=== PATIENT | female | born 1955 | race Caucasian/White ===

== ENCOUNTER → 2017-06-18 12:49 | Outpatient (CLI) | payer OTHER, SELFPAY ==
--- NOTE | 2017-06-18 18:03 | CA.SCORE ---
Calcium Scoring Date of Study:: 06/18/17 Coronary Calcium Scoring: High-resolution computed tomography imaging of the chest was performed on 06/18/2017 with particular attention paid to the coronary arteries. Images from the examination were analyzed for the presence and extent of coronary artery calcification using the quantification software. She tolerated the procedure well. Results. The left main coronary artery did not have any coronary calcium, The left anterior descending artery had a calcium score of 0. The left circumflex artery had a calcium score of 0, The right coronary artery had mild calcification with a calcium score of 3. The above translates to a percentile ranking of less than 50%. Conclusion: Minimal plaque burden Significant coronary artery disease unlikely.
--- NOTE | 2017-06-18 18:06 | CCTA_ITS ---
Calcium Scoring Date of Study:: 06/18/17 Coronary Calcium Scoring: High-resolution computed tomography imaging of the chest was performed on 2017 with particular attention paid to the coronary arteries. Images from the examination were analyzed for the presence and extent of coronary artery calcification using the quantification software. She tolerated the procedure well. Results. The left main coronary artery did not have any coronary calcium, The left anterior descending artery had a calcium score of 0. The left circumflex artery had a calcium score of 0, The right coronary artery had mild calcification with a calcium score of 3. The above translates to a percentile ranking of less than 50%. Conclusion: Minimal plaque burden Significant coronary artery disease unlikely.
== END ==
PROVIDERS: Family Provider Internal Medicine; PCP Internal Medicine; Visit Provider Internal Medicine
DX: Z13.9 Encounter for screening, unspecified (principal)
CPT/HCPCS: 75571; A4216

== ENCOUNTER 2018-04-08 15:00 | Outpatient (RCR) | payer OTHER, SELFPAY ==
--- NOTE | 2018-03-31 18:40 | HP.PTEVAL_ITS ---
Patient's Visit Information NIXON FORBES is a 62 year old F referred to Physical Therapy by Pooja Gamez MD with a diagnosis of R hip pain bursitis. Date of Evaluation: 03/31/18 Physical Therapist: Anuj Servin DPT, OCS, CSCS - Visit Plan Frequency: 2-3x /Week Duration: 4 Weeks Plan: 1-3x/week for 2-4 weeks as needed for. Gave stretches today and activitiy modification, if doing much better next week, will progress to quad and HS/ITB stretch adn SLR via HEP. If not doing better, will nicole, stretch ITB and US adn schedule more frequently. - Subjective Findings: R hip and down side of leg laterally. Worst on steps ascending adn at 4 oclcok in the morning it wakes her up many nights. Sleeps on side(L or R). Its been hurting since beginning of February for no apparent reason. Pain is intermittent. Comfortable at rest typically. Doesn't avoid activities accept a set of steps now and then. 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 - Pain R hip/ITB Pain Intensity (Out of 10): 0 Pain Intensity Range: 0, 7 - Objective Walks well today but says she is normall a luittle antalgic on R. Trasnfers without a problem. ITB B tight mod and HS adn quad mod tight. HIP AROM B WNL and symmetrical, pain on R with ext rotation adn adduction. Knee adn ankle AROM WNL. Strength hip abd and ext rotation are 4- and painful ext B 4-, otherwise 4/5 and without pain. Reflexes 0/3 patella adn achilles B. Sensation WNL to gross light touch B LE. Max tender to palpation over R greater trochanter and moderately into ITB R, not on left. - Goals Goal 1:: I approp HEP to minimize future problems Goal Time Frame: 2-4 Weeks Goal 2:: Pain 1/10 at worst adn rare, 90% better Goal Time Frame: 2-4 Weeks Goal 3:: Sleep without waking at night due to pain. Goal Time Frame: 2-4 Weeks - Rehabilitation Potential Physical Therapy Diagnosis: R trochanteric bursitis, ITB pain. Rehabilitation Potential: Fair - Anticipated Interventions Patient/Client Instruction: Educate patient on: Condition, Plan of Care For the Purpose of:: To decrease pain, To increase ROM, To improve muscle performance and motor function, To increase tolerance to activity/condition/po sition Therapeutic Exercise to Include: Strength training, Flexibilty training, Passive ROM, Active ROM For the Purpose of:: To decrease pain, To increase ROM, To improve performance and independence with ADL's, To improve ability of physical actions for home/community/work/leisure Manual Therapy Techniques to Include: Mobilization, Passive ROM, Soft tissue mobilization For the Purpose of:: To improve nutrient delivery to tissue, To increase tolerance to activity/condition/position IF ES: Yes Cryotherapy (ice pack, ice massage): Yes Ultrasound (thermal/non thermal): Yes - nonthermal. For the Purpose of:: To decrease pain, To improve nutrient delivery to tissue, To increase tolerance to activity/condition/position Thank you for the opportunity to evaluate your patient. For Medicare and Medicare HMO plans, please review the plan of care and approve it. It will need to be FAXED BACK to us at [phone] for Medicare purposes. For Medicare only, by signing this I certify the plan of care. Please let me know if there are questions or concerns regarding this plan of care. Physician Signature: ____Date:
--- NOTE | 2018-05-12 11:17 | HP.PTDCNRP_ITS ---
HP - Discharge Summary (1) - Patient Information NIXON FORBES was seen in my office for initial evaluation on 03/31/18. The following Plan of Care was established for this patient: Initial Frequency: 2-3x /Week Initial Duration: 4 Weeks - Anticipated Interventions Patient/Client Instruction: Educate patient on: Condition, Plan of Care For the Purpose of:: To decrease pain, To increase ROM, To improve muscle perfo rmance and motor function, To increase tolerance to activity/condition/position Therapeutic Exercise to Include: Strength training, Flexibilty training, Passive ROM, Active ROM For the Purpose of:: To decrease pain, To increase ROM, To improve performance and independence with ADL's, To improve ability of physical actions for home/community/work/leisure Manual Therapy Techniques to Include: Mobilization, Passive ROM, Soft tissue mobilization For the Purpose of:: To improve nutrient delivery to tissue, To increase tolerance to activity/condition/position IF ES: Yes Cryotherapy (ice pack, ice massage): Yes Ultrasound (thermal/non thermal): Yes - nonthermal. For the Purpose of:: To decrease pain, To improve nutrient delivery to tissue, To increase tolerance to activity/condition/position This patient was last seen in our office 04/08/18. Pertinent comments regarding their Physical therapy will appear below: Pt seen 2 visits of POC and neglected to schedule or attend any further visits. I will discontinue due to nonattendance as it has been over a month. At this point I will be discontinuing this patient from physical therapy. I would be happy to see this patient again in the future if found appropriate by the physician. Thank you! Anuj Servin, DPT, OCS, CSCS
== END 2018-04-08 17:00 | disposition home or self-care (01) ==
LOC: PT 15:00
PROVIDERS: Family Provider Internal Medicine; PCP Internal Medicine; Referring Provider Internal Medicine; Visit Provider Internal Medicine
DX: M76.31 Iliotibial band syndrome, right leg (principal); M70.71 Other bursitis of hip, right hip
CPT/HCPCS: 97110; 97161

== ENCOUNTER → 2018-05-10 10:16 | Outpatient (CLI) | payer OTHER, SELFPAY ==
--- NOTE | 2018-05-10 10:19 | BI_ITS ---
MAMMOGRAPHY - BILATERAL SCREENING REASON FOR EXAM: Female, 62 years old. Routine annual screening examination. PERTINENT HISTORY: Sister with breast cancer. Mother with breast cancer. TECHNIQUE: Digital bilateral breast dejon (3D mammographic acquisition) in the CC and MLO projections. 2-D mediolateral oblique (MLO) and craniocaudad (CC) views of both breasts were obtained. CAD: Full Field Digital Mammography with Computer Added Detection was performed. COMPARISON: Comparison is made with prior examination dated February 26, 2017 and February 25, 2016. FINDINGS: Breast Composition: There are scattered areas of fibroglandular density. There are no dominant masses or suspicious calcifications. No other significant abnormalities are identified. There has been no significant change since the prior study. BI/SCREENING MAMM (CAD), BILAT IMPRESSION: Stable bilateral screening mammogram. Yearly follow-up mammogram recommended. (A) ASSESSMENT CATEGORY: BIRADS Category 1: Negative. A letter regarding these results will be sent to the patient by the facility within 30 days. Approximately 10% of breast cancers are not detected by mammography. A normal mammogram should not delay biopsy of a clinically suspicious abnormality. [id number] Electronically Signed: Ayaan Posadas, at 11:52 EST , Service support ,
--- NOTE | 2018-05-10 10:20 | BD_ITS ---
STUDY: DUAL ENERGY X-RAY ABSORPTIOMETRY / DXA REASON FOR EXAM: Female, 62 years old. The patient is postmenopausal. Loss of height. TECHNIQUE: Bone Mineral Density (BMD) measurements of lumbar spine and bilateral hips were obtained. COMPARISON: Comparison is made with prior study dated February 25, 2016. FINDINGS: Lumbar Spine (L1-L4): g/cm2 (1.103) / T-score (-0.6) / Z-score (1.0) Findings are suggestive of normal bone density with a low fracture risk. Left Femur Total: g/cm2 (1.126) / T-score (0.9) / Z-score (2.1) Left Femoral Neck: g/cm2 (1.017) / T-score (-0.2) / Z-score (1.3) Right Femur Total: g/cm2 (1.128) / T-score (1.0) / Z-score (2.1) Right Femoral Neck: g/cm2 (1.102) / T-score (0.5) / Z-score (1.9) The T-Scores on the most recent prior examination were: Lumbar Spine (L1-L4): There has been worsening of bone density since the previous examination. Left Femur Total: which represents an improvement of 1.2% . Right Femur Total: which represents a worsening of 7.2%. BD/Dexa Bone Density Study IMPRESSION: The patient is considered normal as outlined below according to World Maciel Organization (WHO) criteria with a low fracture risk. There has been worsening of bone density since the previous examination. Reference Information: The T-score is the number of standard deviations above or below the standard which is normal for young adults at their peak bone mineral density. The World Health Organization (WHO) interprets the T-scores as follows: Above -1 Normal bone density Between -1 and -2.5 Osteopenia Equal to / or below -2.5 Osteoporosis As a practical clinical guideline, osteopenia may be graded as follows: Mild -1 through -1.5 Moderate -1.6 through -2.0 Severe -2.1 through -2.4 The Z-score is the number of standard deviations above or below age-matched controls. A Z-score of less than -1.5 would be considered abnormal. References: 1. NIH Osteoporosis and Related Bone Diseases http://www.osteo.org 2. International Society for Clinical Densitometry http://www.iscd.org 3. National Osteoporosis Foundation http://www.nof.org Electronically Signed: Ayaan Posadas, at 13:28 EST , Service support ,
== END ==
PROVIDERS: Family Provider Internal Medicine; PCP Internal Medicine; Referring Provider Internal Medicine; Visit Provider Internal Medicine
DX: Z78.0 Asymptomatic menopausal state (principal); Z12.31 Encounter for screening mammogram for malignant neoplasm of breast; Z80.3 Family history of malignant neoplasm of breast
CPT/HCPCS: 77063; 77067; 77080

== ENCOUNTER → 2018-09-15 | Outpatient (CLI) | payer OTHER, SELFPAY ==
--- NOTE | 2018-09-15 10:24 | RAD_ITS ---
STUDY: X-RAY CHEST REASON FOR EXAM: Female, 62 years old. Cough, several days TECHNIQUE: PA and lateral chest COMPARISON: 06/02/2016 FINDINGS: Small calcified pulmonary nodule at the left lung base, stable compared to prior imaging. Minimal left lung base atelectasis. Lungs otherwise clear. No defined effusion, infiltrate or pneumothorax. Normal cardiomediastinal silhouette, nereida and pleural margins. No acute osseous or upper abdominal process. Cholecystectomy. RAD/Chest PA and Lateral IMPRESSION: Minimal left lung base atelectasis. Electronically Signed: Ayaz Chaney MD at 8:18 EDT Tel , Service support ,
== END | disposition home or self-care (01) ==
LOC: HPRAD 10:22
PROVIDERS: Family Provider Internal Medicine; PCP Internal Medicine; Referring Provider Internal Medicine; Visit Provider Internal Medicine
DX: R05 Cough (principal)
CPT/HCPCS: 71046

== ENCOUNTER → 2018-10-14 | Outpatient (CLI) | payer OTHER, SELFPAY ==
--- NOTE | 2018-10-14 11:28 | VDLE_ITS ---
Reason For Study: Knee Pain RIGHT LEFT GSV is normal. CFV is compressible, spontaneous, phasic, CFV is compressible, spontaneous, phasic, competent, and demonstrates normal competent and demonstrates normal augmentation. augmentation. FV is compressible, spontaneous, phasic, competent and demonstrates normal augmentation. POP V is compressible, spontaneous, phasic, competent and demonstrates normal augmentation. T/P Trunk is compressible. PTV is compressible. RT PerV is compressible. Procedure Exam performed in department. A preliminary report was called and/or faxed to Dr. Gamez. Interpretation Summary Deep veins of the right lower extremity are patent and compressible segmentally. There is no evidence of right lower extremity deep vein thrombosis. Valvular competence appears intact within the proximal deep venous system on the right . The right greater saphenous vein appears patent and compressible segmentally. Ordering Physician: Pooja Gamez Referring Physician: Pooja Gamez Performed By: Frances Colindres, TIGIST, RVT
--- NOTE | 2018-10-14 11:57 | RAD_ITS ---
STUDY: X-RAY - RIGHT KNEE REASON FOR EXAM: Female, 62 years old. Pain along the posterior-lateral aspect of the knee joint. TECHNIQUE: 4 view(s) of the knee. COMPARISON: None. FINDINGS: Normal visualized distal femur. Normal visualized proximal tibia and fibula. Normal proximal tibiofibular articulation. There is mild degenerative arthrosis of the medial femorotibial compartment. Normal lateral femorotibial compartment. Small spur is seen along the anterior superior aspect of the patella. Small joint effusion. RAD/Knee 4 or More Views IMPRESSION: Mild degree of joint space narrowing involving the medial compartment of knee joint. Small joint effusion. Electronically Signed: Ayaan Posadas, at 12:52 EDT , Service support ,
== END | disposition home or self-care (01) ==
PROVIDERS: Family Provider Internal Medicine; PCP Internal Medicine; Referring Provider Internal Medicine; Visit Provider Internal Medicine
DX: M25.561 Pain in right knee (principal)
CPT/HCPCS: 73564; 93971

== ENCOUNTER → 2019-01-02 10:48 | Outpatient (CLI) | payer MEDICARE, OTHER, SELFPAY ==
--- NOTE | 2019-01-02 11:05 | RAD_ITS ---
STUDY: X-RAY - LEFT FOOT CLINICAL: Pain at the base of the fifth metatarsal. TECHNIQUE: 3 view(s) of the foot. COMPARISON: None. FINDINGS: Normal talus, calcaneus, and tarsal bones. Normal visualized subtalar, talonavicular, calcaneocuboid, tarsal and tarsometatarsal articulations. Normal metatarsi. Normal metatarsophalangeal joint of the great toe. Normal tibial and fibular sesamoid bones. Normal interphalangeal joint of the great toe. Normal phalanges of the great toe. Normal second through fifth metatarsophalangeal joints. Normal interphalangeal joints and phalanges of the lesser toes. The soft tissue structures are unremarkable. RAD/Foot min 3 Views IMPRESSION: Normal x-ray examination of the left foot. Electronically Signed: Kyle Phillips MD at 11:44 EDT Tel , Service support ,
== END ==
PROVIDERS: Family Provider Internal Medicine; PCP Internal Medicine; Referring Provider Internal Medicine; Visit Provider Internal Medicine
DX: M79.672 Pain in left foot (principal)
CPT/HCPCS: 73630

== ENCOUNTER → 2019-05-18 11:33 | Outpatient (CLI) | payer MEDICARE, OTHER, SELFPAY ==
--- NOTE | 2019-05-18 11:26 | BI_ITS ---
MAMMOGRAPHY - BILATERAL SCREENING REASON FOR EXAM: Female, 63 years old. Routine annual screening examination. PERTINENT HISTORY: Sister with breast cancer. Mother with breast cancer. TECHNIQUE: Digital bilateral breast evette (3D mammographic acquisition) in the CC and MLO projections. 2-D mediolateral oblique (MLO) and craniocaudad (CC) views of both breasts were obtained. CAD: Full Field Digital Mammography with Computer Added Detection was performed. COMPARISON: Comparison is made with prior examination May 10, 2018 and February 26, 2017. FINDINGS: Breast Composition: There are scattered areas of fibroglandular density. There are no dominant masses or suspicious calcifications. No other significant abnormalities are identified. There has been no significant change since the prior study. BI/SCREEN MAMM (CAD) W/EVETTE BILAT IMPRESSION: Stable bilateral screening mammogram. Yearly follow-up mammogram recommended. (A) ASSESSMENT CATEGORY: BIRADS Category 1: Negative. A letter regarding these results will be sent to the patient by the facility within 30 days. Approximately 10% of breast cancers are not detected by mammography. A normal mammogram should not delay biopsy of a clinically suspicious abnormality. [id number] Electronically Signed: Ayaan Posadas, at 13:43 EDT , Service support ,
== END ==
PROVIDERS: PCP Internal Medicine; Referring Provider Internal Medicine; Visit Provider Internal Medicine
DX: Z12.31 Encounter for screening mammogram for malignant neoplasm of breast (principal)
CPT/HCPCS: 77063; 77067

== ENCOUNTER → 2020-07-10 09:36 | Outpatient (CLI) | payer MEDICARE, OTHER, SELFPAY ==
--- NOTE | 2020-07-10 09:38 | BI_ITS ---
MAMMOGRAPHY - BILATERAL SCREENING REASON FOR EXAM: Female, 64 years old. Routine annual screening examination. PERTINENT HISTORY: Sister with breast cancer. Mother with breast cancer. TECHNIQUE: Digital bilateral breast evette (3D mammographic acquisition) in the CC and MLO projections. 2-D mediolateral oblique (MLO) and craniocaudad (CC) views of both breasts were obtained. CAD: Full Field Digital Mammography with Computer Added Detection was performed. COMPARISON: Comparison is made with prior study dated 05/18/2019 and 05/10/2018. FINDINGS: Breast Composition: There are scattered areas of fibroglandular density. There are no dominant masses or suspicious calcifications. No other significant abnormalities are identified. There has been no significant change since the prior study. BI/SCRN MAMM (CAD)W/EVETTE BILAT IMPRESSION: Stable bilateral screening mammogram. Yearly follow-up mammogram recommended. (A) ASSESSMENT CATEGORY: BIRADS Category 1: Negative. A letter regarding these results will be sent to the patient by the facility within 30 days. Approximately 10% of breast cancers are not detected by mammography. A normal mammogram should not delay biopsy of a clinically suspicious abnormality. [id number] Electronically Signed: Ayaan Posadas MD at 10:48 EDT , Service support ,
--- NOTE | 2020-07-10 09:40 | BD_ITS ---
STUDY: DUAL ENERGY X-RAY ABSORPTIOMETRY / DXA REASON FOR EXAM: Female, 64 years old. [id number]. The patient is postmenopausal. Loss of height. TECHNIQUE: Bone Mineral Density (BMD) measurements of lumbar spine and bilateral hips were obtained. COMPARISON: Comparison is made with prior study dated 05/10/2018. FINDINGS: Lumbar Spine (L1-L4): g/cm2 (1.123) / T-score (-0.4) / Z-score (1.2) Findings are suggestive of normal bone density with a low fracture risk. Left Femur Total: g/cm2 (1.097) / T-score (0.7) / Z-score (2.0) Left Femoral Neck: g/cm2 (1.023) / T-score (-0.1) / Z-score (1.4) Right Femur Total: g/cm2 (1.194) / T-score (1.5) / Z-score (2.7) Right Femoral Neck: g/cm2 (1.222) / T-score (1.3) / Z-score (2.8) The T-Scores on the most recent prior examination were: Lumbar Spine (L1-L4): There has been improvement of bone density since the previous examination. Left Femur Total: which represents a worsening of 2.6%. Right Femur Total: which represents an improvement of 5.9%. BD/Dexa Bone Density Study IMPRESSION: The patient is considered normal as outlined below according to World Maciel Organization (WHO) criteria with a low fracture risk. There has been improvement of bone density since the previous examination. Reference Information: The T-score is the number of standard deviations above or below the standard which is normal for young adults at their peak bone mineral density. The World Health Organization (WHO) interprets the T-scores as follows: Above -1 Normal bone density Between -1 and -2.5 Osteopenia Equal to / or below -2.5 Osteoporosis As a practical clinical guideline, osteopenia may be graded as follows: Mild -1 through -1.5 Moderate -1.6 through -2.0 Severe -2.1 through -2.4 The Z-score is the number of standard deviations above or below age-matched controls. A Z-score of less than -1.5 would be considered abnormal. References: 1. NIH Osteoporosis and Related Bone Diseases www osteo.org 2. International Society for Clinical Densitometry www iscd.org 3. National Osteoporosis Foundation www nof.org Electronically Signed: Ayaan Posadas MD at 12:58 EDT , Service support ,
== END ==
PROVIDERS: PCP Internal Medicine; Referring Provider Internal Medicine; Visit Provider Internal Medicine
DX: Z12.31 Encounter for screening mammogram for malignant neoplasm of breast (principal); Z78.0 Asymptomatic menopausal state
CPT/HCPCS: 77063; 77067; 77080

== ENCOUNTER → 2020-09-03 08:04 | Outpatient (CLI) | payer MEDICARE, OTHER, SELFPAY ==
--- NOTE | 2020-09-03 08:28 | MRI_ITS ---
STUDY: MRI LEFT KNEE WITH AND WITHOUT CONTRAST REASON FOR EXAM: Left knee pain for more than 3 months, ACL reconstruction 2000, evaluate radiolucency in the proximal tibia on radiographs. TECHNIQUE: Standardized fat and water weighted pulse sequences were obtained in all 3 orthogonal planes before and after intravenous administration of 18 mL of Dotarem. COMPARISON: Radiographs 08/26/2020. FINDINGS: There is attrition of the posterior horn of the medial meniscus suggestive of partial medial meniscectomy with a very small complex signal alteration of the posterior horn of the medial meniscus (proton-density sagittal images 8, 9), either scarring or very small recurrent medial meniscal tear. There is mild peripheral subluxation of the medial meniscus. There is arthrosis of the medial femorotibial compartment with small marginal osteophytes, a subchondral cyst in the medial tibial plateau and chondral thinning (T2 sagittal image 7). There is subchondral bone edema of the medial femoral condyle (T2 coronal images 17-21) with contrast enhancement (postcontrast T1 sagittal images 6, 7), a stress phenomenon. Normal medial collateral ligamentous complex (MCL). Normal distal semimembranosus, gracilis and semitendinosus tendons. Normal lateral meniscus. Normal hyaline cartilage of the lateral femorotibial compartment. Normal lateral femoral condyle and tibial plateau. Normal proximal tibiofibular articulation. Normal lateral collateral (fibular) ligament. Normal popliteus tendon. Normal biceps femoris tendon. There is attenuation of the anterior cruciate ligament (proton-density sagittal image 21; series 7 image 12) suggestive of partial tear. Normal posterior cruciate ligament (PCL). Normal congruent patellofemoral articulation. There is arthrosis of the patellofemoral compartment with very small marginal osteophytes of the patella, mild subchondral cystic change of the patella and partial-thickness chondral loss (T2 sagittal image 12). Normal medial and lateral patellar retinaculum. Normal quadriceps tendon. Normal patellar tendon. There is postoperative scarring in Hoffa''s fat pad. There is a very small joint effusion. There is edema in the anterior and posterior subcutis adipose space. There are postoperative changes of the distal femur and proximal tibia from anterior cruciate ligament reconstruction with the radiolucency on the radiographs representing the tibial bone tunnel. MRI/Lower Ext Joint Only W/WO Cont IMPRESSION: Attenuation of the anterior cruciate ligament graft suggestive of partial tear. Arthrosis of the medial femorotibial and patellofemoral compartments. Partial medial meniscectomy with very small signal alteration of the posterior horn of the medial meniscus, either scarring or very small recurrent medial meniscal tear. Subchondral bone edema of the medial femoral condyle, a stress phenomenon. Very small joint effusion. Radiolucency on radiographs representing the tibial bone tunnel and not a Gary''s abscess. Electronically Signed: Kyle Phillips MD at 10:28 EDT Tel , Service support ,
[2020-09-03 08:35] LABS: CREATININE FINGERSTICK < 0.6 mg/dL (0.55-1.02); EGFR FINGERSTICK > 60.0000 mL/min (>60)
== END ==
PROVIDERS: PCP Internal Medicine; Referring Provider Internal Medicine; Visit Provider Internal Medicine
DX: R93.7 Abnormal findings on diagnostic imaging of other parts of musculoskeletal system (principal)
CPT/HCPCS: 73723; A9575

== ENCOUNTER 2020-09-19 11:00 | Outpatient (RCR) | payer MEDICARE, OTHER, SELFPAY ==
--- NOTE | 2020-08-28 10:34 | HP.PTEVAL_ITS ---
Patient's Visit Information NIXON FORBES is a 64 year old F referred to Physical Therapy by Dr. Pooja Gamez MD with a diagnosis of Left Knee Pain. Date of Evaluation: 08/28/20 Physical Therapist: Emily Dominguez DPT - Visit Plan Frequency: 2x /Week Duration: 4 Weeks Plan: Hold until MRI results- focus on LE and core strength/stabilization with functional mobility. HEP Reviewed: SLR, bridge, hip abduction, clams - Subjective Patient reports 2000 ACL surgery- DSA 10 years later and has never been quite right. In the past few months its flared up and is hard to do steps and garden. Days she takes Ibuprofen just to get her stuff done. Left Knee- Insidious onset. Pain is located along the medial patella and superior patella. Pain does radiates to the posterior knee if she sits to long. Both of her shins hurt in the morning. The right knee is painful but not as bad as the left. Non- contact ACL injury. She describes the pain as dull and achy all the time but this is more sharp. No N/T in the LE. Worst: 8/10 Agg: gardening, Lifting heavy things, sweeping, stairs (up and down). Eases: rest Best: 0/10. Sleep: sometimes disturbed- side sleeper- pillow between the knees. 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 Just had x-rays taken on Wednesday and they are doing an MRI on Wednesday to check for a Gary's abscess. PMHx: none Meds: Crestor - Objective Posture: FH, RS- can correct but does not maintain. Gait: slightly deviated- decreased stance on the left LE. Stairs: asc/desc 8 recip with 2 HR- uses UE for propulsion for ascend and has poor control with descent. HR/TR: able without Pain. SLS: 30 sec without LOB does have mild hip drop. Squat: weight shifts to the right. ROM: 0-125 degrees with pain at end ranges. Sensation/Reflex: WFL. Strength: Core: fair, Hip: 4/5 throughout, Knee: 4+/5, Ankle: 5/5. Flex: HS: mild, Gastroc: moderate - Goals Goal 1:: Patient will be I with HEP and progression Goal Time Frame: 4-6 Weeks Goal 2:: Patient will asc/desc 8 stairs recip with no HR and good control Goal Time Frame: 4-6 Weeks Goal 3:: Patient will report no pain for 1 week Goal Time Frame: 4-6 Weeks - Rehabilitation Potential Physical Therapy Diagnosis: Patient presents with hypomobility- she has decreased painfree ROM, core and LE strength/stabilization, flex and muscular endurance leading to poor posture and increased pain with ADL's. Rehabilitation Potential: Good - Anticipated Interventions Patient/Client Instruction: Educate patient on: Benefits of Fitness Program Therapeutic Exercise to Include: Strength training, Endurance training, Balance training, Coordination, Agility training, Postural training, Flexibilty training, Gait and locomotor training, Neuromotor development, Passive ROM, Active ROM, Dynamic Lumbar Stabilization, Scapular Strength/Stabilization For the Purpose of:: To improve muscle performance and motor function TENS: Yes Cryotherapy (ice pack, ice massage): Yes Thermo therapy (hot pack): Yes Ultrasound (thermal/non thermal): Yes Thank you for the opportunity to evaluate your patient. For Medicare and Medicare HMO plans, please review the plan of care and approve it. It will need to be FAXED BACK to us at [phone] for Medicare purposes. For Medicare only, by signing this I certify the plan of care. Please let me know if there are questions or concerns regarding this plan of care. Physician Signature: Date:
--- NOTE | 2021-01-06 08:38 | HP.PT.NRP ---
NIXON FORBES was seen in my office for initial evaluation on 08/28/20. The following Plan of Care was established for this patient: Initial Frequency: 2x /Week Initial Duration: 4 Weeks Patient/Client Instruction: Educate patient on: Benefits of Fitness Program Therapeutic Exercise to Include: Strength training, Endurance training, Balance training, Coordination, Agility training, Postural training, Flexibilty training, Gait and locomotor training, Neuromotor development, Passive ROM, Active ROM, Dynamic Lumbar Stabilization, Scapular Strength/Stabilization For the Purpose of:: To improve muscle performance and motor function TENS: Yes Cryotherapy (ice pack, ice massage): Yes Thermo therapy (hot pack): Yes Ultrasound (thermal/non thermal): Yes This patient was last seen in our office . Pertinent comments regarding their Physical therapy will appear below: Patient has not attended PT in over 4 weeks and is appropriate for discharge- return to MD for further evaluation as needed. At this point I will be discontinuing this patient from physical therapy. I would be happy to see this patient again in the future if found appropriate by the physician. Thank you! Emily Dominguez DPT Balance/Gait/Functional tests - Balance/Special Test Scores Lower Extremity Functional Score: 47
== END 2020-09-19 19:00 | disposition home or self-care (01) ==
LOC: PT 11:00
PROVIDERS: PCP Internal Medicine; Referring Provider Internal Medicine; Visit Provider Internal Medicine
DX: M22.8X2 Other disorders of patella, left knee (principal)
CPT/HCPCS: 97110; 97162; 97530

== ENCOUNTER 2021-06-20 06:25 | Outpatient (CLI) | payer MEDICARE, OTHER, SELFPAY ==
--- NOTE | 2021-06-20 12:56 | STRESSREP ---
Stress Test Report Date: 06/20/2021 Procedure: Exercise tolerance test/imaging study Indications: Chest pain Consent: Per the patient Procedure: The patient exercised on a Gregorio protocol for 5 minutes and 4 seconds achieving a peak heart rate of 141 bpm (92% predicted maximal heart rate) with a peak blood pressure 170/72 mmHg and a peak MET capacity of 7 METs. The baseline ECG demonstrated normal sinus rhythm, poor R wave progression in the anterior leads. The peak exercise ECG demonstrated sinus tachycardia with no significant ischemic changes. EKG during recovery revealed no significant ischemic changes [There were no cardiac dysrhythmias pretest, during exercise, or recovery]. The functional capacity was considered normal for age. There was [no complaint of chest discomfort during exercise or recovery]. The examination was discontinued secondary to achieving target heart rate. Impression: 1. Technically adequate (percent predicted maximal heart rate greater than 85%) exercise tolerance test 2. Stress test is negative for exercise-induced EKG changes of ischemia 3. The test test is negative for exercise-induced chest pain 4. Functional capacity is normal for age 5. Nuclear images pending Myocardial perfusion imaging study: Technique: The patient was injected with 14.3 mCi of technetium 99m Cardiolite and subsequently rest SPECT Cardiolite nuclear imaging was obtained in the horizontal long, vertical long, and short axis views. The patient exercised on a Gregorio protocol. Please see above for details. The patient was injected with 44.4 mCi of technetium 99m Cardiolite and subsequently stress SPECT Cardiolite nuclear imaging was obtained in the horizontal long, vertical long, and short axis views. A gated Cardiolite study at peak stress was obtained. Interpretation: Rest and stress SPECT Cardiolite nuclear imaging status post realignment, normalization, and attenuation correction, demonstrates no evidence of significant ischemia or infarction. The gated Cardiolite study demonstrates no significant regional wall motion abnormalities. The reported LVEF is greater than 70%. Impression: 1. There is no evidence of significant ischemia or infarction. 2. The gated Cardiolite study reports an LVEF of greater than 70%. This note was generated with [employer]ation software. It may contain incorrect words, spelling, and punctuation that were not noted in checking the note before signing.
== END 2021-06-20 23:59 | disposition home or self-care (01) ==
LOC: CVS 06:28
PROVIDERS: PCP Internal Medicine; Referring Provider Internal Medicine; Visit Provider Internal Medicine
DX: R07.89 Other chest pain (principal)
CPT/HCPCS: 78452; 93017; A9500; A4216

== ENCOUNTER → 2021-07-14 | Outpatient (CLI) | payer MEDICARE, OTHER, SELFPAY ==
--- NOTE | 2021-07-14 08:32 | BI_ITS ---
MAMMOGRAPHY - BILATERAL SCREENING REASON FOR EXAM: Female, 65 years old. Routine annual screening examination. PERTINENT HISTORY: Sister with breast cancer. Mother with breast cancer. TECHNIQUE: Digital bilateral breast evette (3D mammographic acquisition) in the CC and MLO projections. 2-D mediolateral oblique (MLO) and craniocaudad (CC) views of both breasts were obtained. CAD: Full Field Digital Mammography with Computer Added Detection was performed. COMPARISON: Comparison is made with prior study dated 07/10/2020 and 05/18/2019. FINDINGS: Breast Composition: There are scattered areas of fibroglandular density. There are no dominant masses or suspicious calcifications. No other significant abnormalities are identified. There has been no significant change since the prior study. BI/SCRN MAMM (CAD)W/EVETTE BILAT IMPRESSION: Stable bilateral screening mammogram. Yearly follow-up mammogram recommended. (A) ASSESSMENT CATEGORY: BIRADS Category 1: Negative. A letter regarding these results will be sent to the patient by the facility within 30 days. Approximately 10% of breast cancers are not detected by mammography. A normal mammogram should not delay biopsy of a clinically suspicious abnormality. [id number] Electronically Signed: Ayaan Posadas MD at 9:17 EDT ,
== END | disposition home or self-care (01) ==
LOC: OPBI 08:30
PROVIDERS: PCP Internal Medicine; Visit Provider Internal Medicine
DX: Z12.31 Encounter for screening mammogram for malignant neoplasm of breast (principal)
CPT/HCPCS: 77063; 77067

== ENCOUNTER 2021-10-27 11:00 | Outpatient (RCR) | payer MEDICARE, OTHER, SELFPAY ==
--- NOTE | 2021-08-11 15:00 | HP.PTEVAL ---
Patient's Visit Information NIXON FORBES is a 65 year old F referred to Physical Therapy by Dr. Pooja Obregon MD with a diagnosis of LEFT HIP PAIN. Date of Evaluation: 08/11/21 Physical Therapist: Sivan Strong PT, Cert MDT - Visit Plan Frequency: 2-3x /Week Duration: 4-6 Weeks Plan: AQUATIC THERAPY FOR PAIN RELIEF, POSTURE CORRECTION/STRENGTHENING, INSTRUCTION IN APPROPRIATE BODY MECHANICS AND ACTIVITY MODIFICATIONS. DLS STARTING WITH A NEUTRAL SPINE PROGRESSING ROM TOLERATED. GARETT LE ROM, STRETCHING AND STRENGTHENING. HEP INSTRUCTION. 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 NO HEAVY LIFTING. Disability: NO. Present symptoms: LEFT HIP PAIN. LEFT BUTTOCK PAIN. PAIN GOES DOWN THE FRONT OF HER THIGH, THE OUTSIDE OF HER THIGH AND DOWN INTO MILLER. PATIENT DENIES NUMBNESS AND TINGLING. Present since: ABOUT 3 WKS AGO. Pain Scale: WORST 8/10, LEAST 1/10. Currently: 5/10. Commenced as a result of: NO APPARENT REASON. Symptoms at onset: LEFT BUTTOCK. Worse: WORKING IN [employer] BEDS WEDNESDAY REALLY FLARED IT UP, SITTING AND TWISTING, BENDING OVER, STANDING TOO LONG, LYING ON LEFT SIDE, LYING ON R SIDE TOO, STEPS, BENDING DOWN TO PUT SHOE ON. ABOUT 1.5 WKS AGO PUT FOOT UP TO TIE SHOE AND HEARD AND FELT CRACK IN HIP. L HIP CLICKS SOMETIMES WHEN SWINGS L LEG. GETTING IN AND OUT OF CAR. Better: SITTING. Disturbed sleep: YES. Previous history/Previous treatment: PATIENT DENIES HISTORY OF HIP PAIN PRIOR TO THIS. Treatment this episode: EX'S FROM DR. OBREGON AND HAD BEEN DOING SEVERAL OF THEM BEFORE GETTING HURT TOO. IT GOT TO THE POINT THAT IT HURT TOO MUCH TO DO THEM. IT IS EASIER TO DO THEM IN THE WATER. WENT TO [facility] 3 TIMES WITH TEMPORARY BENEFIT. ICE AND IBUPROFEN TAKE THE EDGE OFF. TRAMADOL HAS BEEN PRESCRIBED BUT HASN'T TAKEN IT YET. VOLTERAN CREAM HELPS. Coughing/sneezing/straining: NEGATIVE. Gait: HAS TO USE CRUTCHES SOME. HAS TO LEAD UP STEPS WITH RIGHT LEG. HAS TO TAKE SMALL STEPS WALKING AND LIMPS ON LLE. Bowel or Bladder Dysfunction: NEGATIVE. Accidents: NO. Unexplained weight loss: NO. Imaging: L HIP X-RAY - NORMAL PER PATIENT REPORT. PMH/Recent major surgery: UNREMARKABLE. L KNEE ACL REPAIR 2000 AND 2009 L KNEE ARTHROSCOPIC SURGERY TO CLEAN IT UP. - Objective Sitting/Standing Posture: POOR. NO RELEVANT LATERAL SHIFT. Active Correction of posture: WORSE. PROVOKES LEFT LBP. Other Observations: INDEP GAIT INTO PT WITHOUT ANY ASSISTIVE DEVICES LIMPING ON LLE, WITH DECREASED CADANCE, DECREASED GARETT STRIDE LENGTH AND INCREASED TRUNK FLEXION. NO LOB. Sensory deficit: GARETT LE LIGHT TOUCH SENSATION GROSSLY INTACT AND SYMMETRICAL. ROM deficit: GARETT HS AND GASTROC SOLEUS TIGHTNESS. APPROX 25% DECREASED L HIP ROM ALL PLANES COMPARED TO RIGHT AND C/O PAIN AT THE END OF THE AVAILABLE ROM. Motor deficit: RIGHT LE 5/5. LEFT LE: HIP 3+/5, KNEE EXT 4/5, KNEE FLEX 5/5, ANKLE 5/5. Dural Signs: NEGATIVE GARETT LE DURAL TESTS. Lumbar mvmt loss: flex - MOD. ext - QI. R SG - MOD. L SG - MOD. PATIENT C/O INCREASED PAIN WITH LUMBAR ROM TESTING INTO EXTENSION AND FLEXION. Core strength: POOR. Palpation: LEFT POSTERIOR AND LATERAL HIP PAIN. LEFT IT BAND TENDERNESS. OTHER: POSITIVE L ERWIN TEST. TREATMENT: NEUROMUSCULAR REEDUCATION - RETRAINING OF MVMT AND POSTURE FOR SITTING, LYING AND STANDING ACTIVITIES. - Balance/Special Test Scores Lower Extremity Functional Score: 28 TUG Test Time Seconds: 13.77 30 Second Chair Rise Test Seconds: 12 - Goals Goal 1:: DECREASE C/O LEFT LE PAIN Goal Time Frame: 4-6 Weeks Goal 2:: IMPROVE BENDING, LIFTING, STANDING, WALKING, ADL, WORK AND SLEEP FUNCTION Goal Time Frame: 4-6 Weeks Goal 3:: INSTRUCT IN PROPHYLAXIS Goal Time Frame: 4-6 Weeks - Anticipated Interventions Patient/Client Instruction: Educate patient on: Condition, Plan of Care, Risk Factors For the Purpose of:: To improve self management Therapeutic Exercise to Include: Strength training, Body mechanics, Postural training, Flexibilty training, Neuromotor development, In an aquatic setting, Dynamic Lumbar Stabilization For the Purpose of:: To decrease pain, To increase ROM, To improve muscle performance and motor function, To increase tolerance to activity/condition/position, To improve ability of physical actions for home/community/work/leisure Thank you for the opportunity to evaluate your patient. For Medicare and Medicare HMO plans, please review the plan of care and approve it. It will need to be FAXED BACK to us at [phone] for Medicare purposes. For Medicare only, by signing this I certify the plan of care. Please let me know if there are questions or concerns regarding this plan of care. Physician Signature: Date:
--- NOTE | 2021-08-29 15:25 | HP.PTREVAL ---
Dr. Pooja Gamez MD, It has been my pleasure to treat NIXON FORBES over the last 10 visits for LEFT HIP PAIN. Please see the progress note below for an update on the physical therapy plan of care! Subjective: PATIENT REPORTS THE PAIN IN HER HIP IS ALMOST GONE. FEARFUL OF IT COMING BACK. MAIN TIME SHE FEELS SOME PAIN IS LAYING IN BED. NO PAIN AT WORK BUT NOT GETTING DOWN ON FLOOR YET. Objective/Function: PATIENT WAS SEEN TODAY FOR RE-ASSESSMENT OF PROGRESS TOWARD THE SET PT GOALS AND THE NEED FOR FURTHER PHYSICAL THERAPY VS READINESS FOR DISCHARGE. PATIENT IS MAKING GOOD PROGRESS TOWARD ALL PT GOALS AND IS A GOOD CANDIDATE TO CONTINUE PT BASED ON PROGRESS MADE AND ROOM FOR FURTHER IMPROVEMENT. PATIENT IS AGREEABLE. UPON EXAM TODAY: ROM deficit: GARETT HS AND GASTROC SOLEUS TIGHTNESS. APPROX 15% DECREASED L HIP ROM ALL PLANES COMPARED TO RIGHT AND STILL WITH C/O PAIN AT THE END OF THE AVAILABLE ROM. Motor deficit: RIGHT LE 5/5. LEFT LE: HIP 4-/5, KNEE EXT 4/5, KNEE FLEX 5/5, ANKLE 5/5. Dural Signs: NEGATIVE GARETT LE DURAL TESTS. Lumbar mvmt loss: flex - MIN. ext - QI. R SG - MOD. L SG - MOD. NO C/O INCREASED PAIN WITH LUMBAR ROM TESTING. Core strength: POOR. OTHER: POSITIVE L ERWIN TEST. Plan Plan: CONTINUE AQUATIC THERAPY PER ORIG POC NEEDED AFTER VACATION 2-3 TIMES A WEEK X 3-4 WKS. PATIENT AGREEABLE. Balance/Gait/Functional tests - Balance/Special Test Scores Lower Extremity Functional Score: 46 TUG Test Time Seconds: 13.77 Tug Test: <20 sec.=mostly independent 30 Second Chair Rise Test Seconds: 12 Goals Goal 1:: DECREASE C/O LEFT LE PAIN Goal Time Frame: 4-6 Weeks Goal Progress: Progressing Goal 2:: IMPROVE BENDING, LIFTING, STANDING, WALKING, ADL, WORK AND SLEEP FUNCTION Goal Time Frame: 4-6 Weeks Goal Progress: Progressing Goal 3:: INSTRUCT IN PROPHYLAXIS Goal Time Frame: 4-6 Weeks Goal Progress: Progressing Anticipated Interventions Patient/Client Instruction: Educate patient on: Condition, Plan of Care, Risk Factors For the Purpose of:: To improve self management Therapeutic Exercise to Include: Strength training, Body mechanics, Postural training, Flexibilty training, Neuromotor development, In an aquatic setting, Dynamic Lumbar Stabilization For the Purpose of:: To decrease pain, To increase ROM, To improve muscle performance and motor function, To increase tolerance to activity/condition/position, To improve ability of physical actions for home/community/work/leisure Please do not hesitate to contact me at [phone] by phone or if you have questions or concerns regarding this new plan of care! Sincerely, Sivan Strong, PT, Cert MDT
--- NOTE | 2021-10-27 11:31 | HP.PTDCSUM_ITS ---
It has been my pleasure to treat NIXON FORBES referred by Dr. Pooja Gamez MD, with the diagnosis of LEFT HIP PAIN for a total of 19 visit(s). Discharge Date: 10/27/21 Please see the following information for a summary of their discharge status. Subjective: PATIENT REPORTS SHE HASN'T BEEN ABLE TO COME DUE TO HAVING COVID. STATES SHE GOT REALLY WEAK AND HER SX'S FLARED UP FROM LAYING AROUND BUT HAS BEEN DOING HER HOME EX'S AND FINALLY GOT BACK IN THE WATER TOO. THINKS SHE FEELS READY TO CONTINUE INDEP'LY NOW. PATIENT REPORTS SHE IS STILL BEING CAREFUL ON STEPS, NOT JUST BECAUSE OF HER HIP BUT DUE TO L KNEE TOO. STILL UNCOMFORTABLE LYING. HAS TO SLEEP PART OF NIGHT IN RECLINER BECAUSE CAN'T GET COMFORTABLE IN BED. left hip Pain Intensity (Out of 10): 1 L knee Pain Intensity (Out of 10): 0 % Improvement: 95 Objective/Function: ATIENT WAS SEEN TODAY FOR RE-ASSESSMENT OF PROGRESS TOWARD THE SET PT GOALS AND THE NEED FOR FURTHER PHYSICAL THERAPY VS READINESS FOR DISCHARGE. ALL GOALS MET. APPROPRIATE FOR DISCHARGE TO [facility] EX however she is still unable to sleep in her bed without pain and still has R hip ROM and strength deficits. Please note positive Erwin Test too. PATIENT IS AGREEABLE. UPON EXAM TODAY: ROM deficit: GARETT HS AND GASTROC SOLEUS TIGHTNESS. APPROX 10% DECREASED L HIP ROM ALL PLANES COMPARED TO RIGHT AND STILL WITH C/O PAIN AT THE END OF THE AVAILABLE ROM. Motor deficit: RIGHT LE 5/5. LEFT LE: HIP 4- /5, KNEE EXT 4/5, KNEE FLEX 5/5, ANKLE 5/5. Lumbar mvmt loss: flex - NIL. ext - MOD. R SG - MOD. L SG - MOD. NO C/O INCREASED PAIN WITH LUMBAR ROM TESTING. Core strength: POOR. OTHER: POSITIVE L ERWIN TEST. Goal 1:: DECREASE C/O LEFT LE PAIN Goal Progress: Goal Met Goal 2:: IMPROVE BENDING, LIFTING, STANDING, WALKING, ADL, WORK AND SLEEP FUNCTION Goal Progress: Goal Met Goal 3:: INSTRUCT IN PROPHYLAXIS Goal Progress: Goal Met Plan: D/C TO [facility] AND [facility] POOL EX. PATIENT IS AGREEABLE. WOULD STILL RECOMMEND PHYSICIAN RE-CHECK DUE TO FURTHER L HIP TESTING MIGHT BE necessary. If there are questions or concerns regarding this patient's physical therapy, please feel free to call me at [phone]. Thank you for the referral of this patient. Sincerely, Sivan Strong, PT, Cert MDT Balance/Gait/Functional tests - Balance/Special Test Scores Lower Extremity Functional Score: 56 TUG Test Time Seconds: 13.77 Tug Test: <20 sec.=mostly independent 30 Second Chair Rise Test Seconds: 12
== END 2021-10-27 14:43 | disposition home or self-care (01) ==
LOC: PT 11:00
PROVIDERS: PCP Internal Medicine; Referring Provider Internal Medicine; Visit Provider Internal Medicine
DX: M25.552 Pain in left hip (principal)
CPT/HCPCS: 97112; 97113; 97162; 97164

== ENCOUNTER → 2022-06-22 | Outpatient (CLI) | payer MEDICARE, OTHER, SELFPAY ==
--- NOTE | 2022-06-22 17:30 | MRI_ITS ---
INDICATION: TREMORS IN R LEG AND HAND X 6 MONTHS EXAMINATION: MRI - MR Brain WO/W Contrast Contrast IV 18mL CLARISCAN COMPARISON: None provided. Findings: Multisequence multiplanar MRI images of the brain with and without contrast. Included is diffusion-weighted series with corresponding ADC map which demonstrate no evidence of restricted diffusion. Few tiny bilateral punctate periventricular areas of increased T2 and FLAIR signal most consistent with chronic periventricular white matter ischemic changes, other white matter disease is less likely. No significant volume loss. Midline anatomy and craniocervical junction appear unremarkable. No abnormal enhancement is identified. No significant blooming artifact on gradient echo imaging. Vascular structures/flow-voids are unremarkable. Osseous structures are unremarkable. MRI/Brain W/WO Contrast IMPRESSION: No comparison provided. No evidence of restricted diffusion to suggest acute ischemia. No significant abnormal enhancement is identified. Few tiny bilateral punctate periventricular areas of increased T2 and FLAIR signal most consistent with chronic periventricular white matter ischemic changes, other white matter disease is less likely. Electronically Signed: Eugene Gross MD at 22:27 EDT ,
[2022-06-22 17:50] LABS: CREATININE FINGERSTICK < 0.9 mg/dL (0.55-1.02); EGFR FINGERSTICK > 60.0000 mL/min (>60)
== END | disposition home or self-care (01) ==
LOC: MRI 16:39
PROVIDERS: PCP Internal Medicine; Referring Provider Internal Medicine; Visit Provider Internal Medicine
DX: R25.1 Tremor, unspecified (principal)
CPT/HCPCS: 70553; A9575

== ENCOUNTER → 2022-07-17 | Outpatient (CLI) | payer MEDICARE, OTHER, SELFPAY ==
--- NOTE | 2022-07-17 12:06 | BI_ITS ---
MAMMOGRAPHY - BILATERAL SCREENING REASON FOR EXAM: Female, 66 years old. Routine annual screening examination. PERTINENT HISTORY: Sister with breast cancer. Mother with breast cancer. TECHNIQUE: Digital bilateral breast evette (3D mammographic acquisition) in the CC and MLO projections. 2-D mediolateral oblique (MLO) and craniocaudad (CC) views of both breasts were obtained. CAD: Full Field Digital Mammography with Computer Added Detection was performed. COMPARISON: Comparison is made with prior examination dated July 14, 2021 and July 10, 2020. FINDINGS: Breast Composition: There are scattered areas of fibroglandular density. There are no dominant masses or suspicious calcifications. No other significant abnormalities are identified. There has been no significant change since the prior study. BI/SCRN MAMM (CAD)W/EVETTE BILAT IMPRESSION: Stable bilateral screening mammogram. Yearly follow-up mammogram recommended. (A) ASSESSMENT CATEGORY: BIRADS Category 1: Negative. A letter regarding these results will be sent to the patient by the facility within 30 days. Approximately 10% of breast cancers are not detected by mammography. A normal mammogram should not delay biopsy of a clinically suspicious abnormality. [id number] Electronically Signed: Ayaan Posadas MD at 13:09 EDT ,
== END | disposition home or self-care (01) ==
LOC: OPBI 12:03
PROVIDERS: PCP Internal Medicine; Referring Provider Internal Medicine; Visit Provider Internal Medicine
DX: Z12.31 Encounter for screening mammogram for malignant neoplasm of breast (principal); Z80.3 Family history of malignant neoplasm of breast
CPT/HCPCS: 77063; 77067

== ENCOUNTER → 2022-10-09 | Outpatient (CLI) | payer MEDICARE, OTHER, SELFPAY ==
--- NOTE | 2022-10-09 08:16 | MRI_ITS ---
STUDY: MRI LEFT KNEE REASON FOR EXAM: Female, 66 years old. Knee pain. Evaluate for internal derangement. History of prior ACL surgery in 2000. TECHNIQUE: Standardized fat and water weighted pulse sequences were obtained in all 3 orthogonal planes. COMPARISON: Left knee images dated July 2016. FINDINGS: Loss of substance of the posterior horn of the medial meniscus without a demonstrated surfacing meniscal tear. Marked thinning of the articular cartilage of the medial femorotibial compartment with reactive subchondral bone marrow edema and subchondral cyst formation. Extensive area of bone marrow edema in the medial femoral condyle which may represent an insufficiency fracture (coronal series 6 images 11-24). Mild MCL sprain (coronal series 6 image 19). Normal distal semimembranosus, gracilis and semitendinosus tendons. Normal lateral meniscus. Moderate thinning of the articular cartilage of the lateral femorotibial compartment (coronal series 6 images 13-20). Normal lateral femoral condyle and tibial plateau. Normal proximal tibiofibular articulation. Normal lateral collateral (fibular) ligament. Normal popliteus tendon. Normal biceps femoris tendon. ACL graft with marked thinning/attenuation. Some of the fibers are, however, intact (coronal series 6 images 13-17). Buckling of the PCL which may be secondary to anterior tibial translation (sagittal series 4 image 12). Lateral tilt and subluxation of the patella with moderate thinning of the articular cartilage of the patellofemoral compartment with reactive subchondral bone marrow edema and osteophytes (axial series 2 images 5-11). Normal medial and lateral patellar retinaculum. Normal quadriceps tendon. Normal patellar tendon. Normal Hoffa''s fat pad. Small joint effusion (axial series 2 image 7). Marked prepatellar subcutaneous soft tissue edema (sagittal series 4 image 16). Normal visualized osseous structures. MRI/Lower Ext Joint Only (Routine) IMPRESSION: Loss of substance of the posterior horn of the medial meniscus with no demonstrated surfacing meniscal tear. Marked thinning of the articular cartilage of the medial femorotibial compartment with reactive subchondral bone marrow edema. Large area of bone marrow edema in the medial femoral condyle most compatible with insufficiency fracture. Mild MCL sprain. Moderate thinning of the articular cartilage of the lateral femorotibial compartment. Thinning/attenuation of the ACL graft without discontinuity. Slight buckling of the PCL which may be secondary to anterior tibial translation. Lateral tilt and subluxation of the patella with moderate thinning of the articular cartilage of the patellofemoral compartment. Marked prepatellar subcutaneous soft tissue edema. Small joint effusion. Electronically Signed: Gm Sidhu MD at 12:19 EDT ,
== END | disposition home or self-care (01) ==
LOC: MRI 07:49
PROVIDERS: PCP Internal Medicine; Referring Provider Internal Medicine; Visit Provider Internal Medicine
DX: M23.92 Unspecified internal derangement of left knee (principal)
CPT/HCPCS: 73721

== ENCOUNTER 2022-12-21 11:30 | Outpatient (RCR) | payer MEDICARE, OTHER, SELFPAY ==
--- NOTE | 2022-11-25 10:21 | HP.PTEVAL ---
Patient's Visit Information Visit Information Visit Information: NIXON FORBES is a 66 year old F referred to Physical Therapy by Dr. Dayton Stanford MD with a diagnosis of Left Knee Pain. Date of Evaluation: 11/25/22 Physical Therapist: Emily Dominguez DPT Visit Plan Frequency: 2x /Week Duration: 4 Weeks Plan: Aquatic PT- focus on LE and core strength/stabilization- functional mobility Subjective Subjective: Patient reports pain on/off- most recently she has been in a flare generally since August- kneeled in the flower bed and it really aggravated it. The pain comes and goes now. Some days she can hardly walk and other days its pretty normal. The left knee. End of September 5 days on crutches 11/15. Agg: on it too much- standing it worse than walking- being on her feet most of the day. Eases: laying still, ice Best: 03/17. Describes the pain as dull and achy but does have some sharp and shooting pains with ambulation. If she locks it out its easier to ambulate. Pain is located in the medial aspect of the joint line and some in the superior patella. Sometimes it will radiate to the ITBand but not very often. No N/T in the toes. Saw Dr. Stanford- she will have to do a TKR but trying to avoid for as long as possible. She had collagen injections in the knee- 3x they helped a little bit- the last one was in October. She is more sedentary- due to the knee pain. 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 Sleep: not disturbed- side sleeper- pillow between her knees- does sleep half the night in the recliner- started this with her knee pain. She does have stairs at home but does not do them daily. She did water therapy in the spring and really enjoyed it and looking to get back into that. MRI: see results in chart. PMHx/Meds: DM (ozempic), primadone, Objective Objective: Posture: FH, RS- can correct with verbal cues but does not maintain Gait: slight decreased heel strike due to lack of extension HR/TR: able with UE A but reports feeling it SLS: 15 sec with good stability Palpation: tender along medial joint line and posterior lateral joint line Observation: no edema noted Stairs: asc/desc 8 recip with 1 HR- dec control with descent Strength: Ankle: 5/5, Knee: Extn: 28.5 lbs Flexion: 14.9 lbs Hip: Flexion: 4/5, Extn: 4/5, Abd: 4/5 Add: 4+/5, IR/ER: 4/5. Flex: HS: mod, Gastroc: moderate ROM: 10-120 degrees with pain at end range flexion Balance/Special Test Scores Lower Extremity Functional Score: 36 Goals Goal 1:: Patient will be I with HEP and progression Goal Time Frame: 4-6 Weeks Goal 2:: Patient will demo full extension without pain in the left knee Goal Time Frame: 4-6 Weeks Goal 3:: Patient will asc/desc 8 stairs with 1 HR Goal Time Frame: 4-6 Weeks Goal 4:: Patient will report 80% improvement Goal Time Frame: 4-6 Weeks Rehabilitation Potential Physical Therapy Diagnosis: Patient presents with hypomobility- she has decreased LE and core strength/stabilization, pain free ROM, flex, proprioception and muscular endurance leading to increased pain with ADL's. Rehabilitation Potential: Good Anticipated Interventions Patient/Client Instruction: Educate patient on: Benefits of Fitness Program Therapeutic Exercise to Include: Strength training, Endurance training, Balance training, Coordination, Agility training, Body mechanics, Postural training, Flexibilty training, Gait and locomotor training, Neuromotor development, In an aquatic setting, Dynamic Lumbar Stabilization and Scapular Strength/Stabilization For the Purpose of:: To improve muscle performance and motor function Text: Thank you for the opportunity to evaluate your patient. For Medicare and Medicare HMO plans, please review the plan of care and approve it. It will need to be FAXED BACK to us at [phone] for Medicare purposes. For Medicare only, by signing this I certify the plan of care. Please let me know if there are questions or concerns regarding this plan of care. Physician Signature: Date:
--- NOTE | 2022-12-21 12:40 | HP.PTDCSUM ---
Discharge Summary D/C summary: It has been my pleasure to treat NIXON FORBES referred by Dr. Dayton Stanford MD, with the diagnosis of Left Knee Pain for a total of 9 visit(s). Discharge Date: Please see the following information for a summary of their discharge status. Subjective Subjective: Patient reports that she has not had any significant changes- it depends on if she standing on concrete or if she is turning. She does feel like she has gained some balance and she got some exercise and did have some pain free moments since the water was less strenuous on it. The last few weeks the worst 4/10- it normally lives in a 2/10. She does feel that she avoids extra trips upstairs but its not terribly affecting her life. Pain LLE: Pain Intensity (Out of 10): 2 RLE: Pain Intensity (Out of 10): 0 Overall Improvement % Improvement: 40 Objective Objective/Function: FH, RS- can correct with verbal cues but does not maintain Gait: slight decreased heel strike due to lack of extension HR/TR: able with UE A but reports SLS: 15 sec with good stability Palpation: tender along medial joint line Observation: no edema noted Stairs: asc/desc 8 recip with 1 HR Strength: Ankle: 5/5, Knee: Extn: 33 lbs Flexion: 17 lbs Hip: Flexion: 4/5, Extn: 4/5, Abd: 4/5 Add: 4+/5, IR/ER: 4/5. Flex: HS: mod, Gastroc: moderate ROM: 10-120 degrees with pain at end range flexion Goals Goal 1:: Patient will be I with HEP and progression Goal Progress: Goal Met Goal 2:: Patient will demo full extension without pain in the left knee Goal Progress: Goal Met Goal 3:: Patient will asc/desc 8 stairs with 1 HR Goal Progress: Goal Met Goal 4:: Patient will report 80% improvement Goal Progress: Progressing Plan Plan: 12/21/22: Discharge- pt would like to continue I HEP with vero sneakers and possibly check out possibly Parkinsons class Aquatic PT- focus on LE and core strength/stabilization- functional mobility D/C Information d/c sentence: If there are questions or concerns regarding this patient's physical therapy, please feel free to call me at [phone]. Thank you for the referral of this patient. Sincerely, Emily Dominguez, DPT Balance/Gait/Functional tests Balance/Special Test Scores Lower Extremity Functional Score: 47 Improvement % Improvement: 40
== END 2022-12-21 13:53 | disposition home or self-care (01) ==
LOC: PT 11:30
PROVIDERS: PCP Internal Medicine; Referring Provider Specialist; Visit Provider Specialist
DX: M17.0 Bilateral primary osteoarthritis of knee (principal); M25.462 Effusion, left knee; E66.01 Morbid (severe) obesity due to excess calories
CPT/HCPCS: 97113; 97162; 97164

== ENCOUNTER → 2023-01-08 | Outpatient (CLI) | payer MEDICARE, OTHER, SELFPAY ==
[2023-01-08 13:25] LABS: Hematocrit 46.2 % (37-47); Hemoglobin 14.3 g/dL (12.0-15.0); Mean Corpuscular Hgb 28.4 pg (27.0-32.0); Mean Corpuscular Volume 91.8 fL (81-99); Platelet Count 302 K/mm3 (150-450); RBC Distribution Width CV 13.2 % (11.6-14.6); RBC Distribution Width SD 44.3 fl (35.1-43.9); Red Blood Count 5.03 M/mm3 (4.2-5.4); White Blood Count 5.6 K/mm3 (4.4-11.0)
[2023-01-08 13:40] LABS: Vitamin B12 499 pg/mL (211-911)
[2023-01-08 13:46] LABS: AST(SGOT) 21 U/L (15-37); Alanine Aminotransfer ALT/SGPT 29 U/L (13-56); Albumin, Serum 3.7 g/dL (3.2-5.0); Alkaline Phosphatase 74 U/L (45-117); Anion Gap 4 (5-15); BUN 15 mg/dL (7-18); BUN/Creat Ratio 20.5 RATIO (10-20); Chloride 105 mmol/L (98-107); Creatinine, Serum 0.73 mg/dL (0.55-1.02); EST Glomerular Filtration Rate 84 mL/min (>60); Est Glom Filt Rate - Afr Amer 101 mL/min (>60); Globulin 3.8 g/dL (2.2-4.2); Glucose 99 mg/dL (74-106); Magnesium 2.5 mg/dL (1.6-2.6); Potassium 4.2 mmol/L (3.5-5.1); Protein, Total 7.5 g/dL (6.4-8.2); Sodium Level 140 mmol/L (136-145)
[2023-01-11 12:08] LABS: Vitamin D 1,25-Dihydroxy 25.8 pg/mL (24.8-81.5)
== END | disposition home or self-care (01) ==
LOC: MTLAB 10:04
PROVIDERS: PCP Internal Medicine; Referring Provider Psychiatry & Neurology Neurology; Visit Provider Psychiatry & Neurology Neurology
DX: E55.9 Vitamin D deficiency, unspecified (principal); G20.A1 Parkinson's disease without dyskinesia, without mention of fluctuations; R53.83 Other fatigue; E78.5 Hyperlipidemia, unspecified
CPT/HCPCS: 36415; 80053; 82607; 82652; 83735; 84443; 85027

== ENCOUNTER 2023-05-25 12:00 | Outpatient (RCR) | payer MEDICARE, OTHER, SELFPAY ==
--- NOTE | 2023-05-05 18:27 | HP.PTEVAL ---
Patient's Visit Information Visit Information Visit Information: NIXON FORBES is a 67 year old F referred to Physical Therapy by Dr. Marcelino Israel MD with a diagnosis of Parkinson's Disease. Date of Evaluation: 05/05/23 Physical Therapist: KARMA Taylor Visit Plan Frequency: 1x/Week Duration: 3 Weeks Plan: 1X/ week for 3 weeks for tips for rolling over in bed, balance including head turns, gait (heel to toe), turning 180 degrees, posture, dual tasking for HEP and print outs to be able to do them at home HEP: work on more heel to toe gait pattern, stepping with picking up her feet, walking with horizontal head turns Subjective Subjective: Pt was Dx with PD 12-21-22. She knows that exercises that is the best thing that she can do. She notices her tremors the most. Going up steps are trouble but has a bad L knee. Balance is an issue when stands up too fast. Turning over in bed and getting tangled up in the sheets. She is still driving and she has stairs to basement and to the garage with a railing. She has not had any falls. She swims 3X/ week (does exercises). She has an exercise bike at home. 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 Objective Objective: Gait: LE MMT: R hip flex 16.6 and L 14 R knee ext 22.3 and L 16.6 R knee flex 10.7 and L 9.6 FGA: Dual tasking sit to stand Stairs: Balance/Special Test Scores Lower Extremity Functional Score: 44 Goals Goal 1:: I HEP Goal Time Frame: 4-6 Weeks Goal 2:: Be able to walk with more heel to toe gait pattern Goal Time Frame: 4-6 Weeks Goal 3:: Be able to walk with horizontal head turns without slowing her gait Goal Time Frame: 4-6 Weeks Anticipated Interventions Patient/Client Instruction: Educate patient on: Condition and Plan of Care For the Purpose of:: To improve ability to perform ADL's, To increase tolerance to activity/condition/position, To improve performance and independence with ADL's, To decrease level of supervision to perform tasks, To improve ability of physical actions for home/community/work/leisure, To improve gait and locomotor functions, To improve endurance and To improve balance Therapeutic Exercise to Include: Strength training, Endurance training, Balance training, Coordination, Agility training, Postural training, Gait and locomotor training, Neuromotor development and Active ROM For the Purpose of:: To improve muscle performance and motor function, To increase tolerance to activity/condition/position, To improve performance and independence with ADL's, To decrease level of supervision to perform tasks, To improve ability of physical actions for home/community/work/leisure, To improve gait and locomotor functions, To decrease soft tissue restriction, To improve endurance, To improve balance and To improve safety with gait Functional Training to Include: Gait training For the Purpose of:: To improve gait and locomotor functions and To improve safety with gait Text: Thank you for the opportunity to evaluate your patient. For Medicare and Medicare HMO plans, please review the plan of care and approve it. It will need to be FAXED BACK to us at [phone] for Medicare purposes. For Medicare only, by signing this I certify the plan of care. Please let me know if there are questions or concerns regarding this plan of care. Physician Signature: Date:
--- NOTE | 2023-05-25 13:09 | HP.PTDCSUM ---
Discharge Summary D/C summary: It has been my pleasure to treat NIXON FORBES referred by Dr. Marcelino Israel MD, with the diagnosis of Parkinson's Disease for a total of 4 visit(s). Discharge Date: 05/25/23 Please see the following information for a summary of their discharge status. Subjective Subjective: She has had a really sore knee since last and now it is better. She has been to ortho surgeon and will need to be replaced at some time. She is doing water exercises and that helps. Pain L knee pain: Pain Intensity (Out of 10): 2 Overall Improvement % Improvement: 80 Objective Objective/Function: Pt does well with sequences but messes up once in awhile Goals Goal 1:: I HEP Goal Progress: Goal Met Goal 2:: Be able to walk with more heel to toe gait pattern Goal Progress: Progressing Goal 3:: Be able to walk with horizontal head turns without slowing her gait Goal Progress: Progressing Plan Plan: dc pt to HEP D/C Information Discharge Comments: DCPT to HEP d/c sentence: If there are questions or concerns regarding this patient's physical therapy, please feel free to call me at [phone]. Thank you for the referral of this patient. Sincerely, Sandhya Cruz, MPT Balance/Gait/Functional tests Balance/Special Test Scores Lower Extremity Functional Score: 45 Improvement % Improvement: 80
== END 2023-05-25 19:00 | disposition home or self-care (01) ==
LOC: PT 12:00
PROVIDERS: PCP Internal Medicine; Referring Provider Psychiatry & Neurology Neurology; Visit Provider Psychiatry & Neurology Neurology
DX: G20.A1 Parkinson's disease without dyskinesia, without mention of fluctuations (principal)
CPT/HCPCS: 97110; 97161

== ENCOUNTER 2023-07-16 01:35 | Emergency (ER) | payer MEDICARE, OTHER, SELFPAY ==
[2023-07-16] VITALS (10 sets, daily range): BP systolic 116–168; BP diastolic 57–83; PULSE 19–80; RESP 13–84; TEMP 36.4; O2SAT 96–100; BMI 36.1
--- NOTE | 2023-07-16 02:03 | RAD_ITS ---
INDICATION: CP EXAMINATION/TECHNIQUE: X-RAY - XR Chest 2 Views COMPARISON: None. FINDINGS: LINES/DEVICES: None. LUNGS: No consolidation. No pneumothorax. MEDIASTINUM: Aorta is atherosclerotic. CARDIAC SILHOUETTE: Not enlarged. BONES AND SOFT TISSUES: No acute abnormalities. Surgical clips right upper abdomen cholecystectomy. RAD/Chest PA and Lateral IMPRESSION: No evidence of active intrathoracic disease. Electronically Signed: Pao Farmer MD at 2:52 EDT ,
[2023-07-16 02:11] LABS: Absolute Lymphocyte Count 2.62 X10^3/uL (0.83-4.51); Absolute Neutrophil Count 3.9 X10^3/uL (2.0-7.7); Basophil# 0.05 X10^3/uL; Basophil% 0.7 % (0-1); Eosinophils% 1.4 % (0-5); Hematocrit 43.6 % (37-47); Hemoglobin 13.9 g/dL (12.0-15.0); Lymphocyte # 2.62 X10^3/ul (0.83-4.51); Mean Corp Hgb Conc 31.9 g/dL (32-36); Mean Corpuscular Hgb 29.1 pg (27.0-32.0); Mean Corpuscular Volume 91.2 fL (81-99); Mean Platelet Vol. 9.9 fl (6.2-12.0); Monocyte# 0.58 X10^3/uL; NRBC Flagged by Analyzer 0 % (0-5); Neutrophil # 3.92 X10^3/uL (2.7-7.7); Neutrophil % 53.8 % (47-70); Platelet Count 255 K/mm3 (150-450); RBC Distribution Width CV 13.4 % (11.6-14.6); RBC Distribution Width SD 45.3 fl (35.1-43.9); Red Blood Count 4.78 M/mm3 (4.2-5.4); White Blood Count 7.3 K/mm3 (4.4-11.0)
[2023-07-16 02:38] LABS: D-Dimer Quantitative (DVT/PE) 0.57 FEU/ug/m (0.27-0.49)
[2023-07-16 02:43] LABS: AST(SGOT) 30 U/L (15-37); Alanine Aminotransfer ALT/SGPT 25 U/L (13-56); Albumin, Serum 3.5 g/dL (3.2-5.0); Alkaline Phosphatase 65 U/L (45-117); Anion Gap 2 (5-15); BUN 17 mg/dL (7-18); BUN/Creat Ratio 23.4 RATIO (10-20); Bilirubin, Direct 0.07 mg/dL (0.00-0.30); Calcium,Total 8.9 mg/dL (8.5-10.1); Chloride 106 mmol/L (98-107); Creatinine, Serum 0.72 mg/dL (0.55-1.02); EST Glomerular Filtration Rate 85 mL/min (>60); Est Glom Filt Rate - Afr Amer 102 mL/min (>60); Estimated Creatinine Clearance 61.42 ml/min; Globulin 3.6 g/dL (2.2-4.2); Glucose 115 mg/dL (74-106); Lipase 150 U/L (13-75); Magnesium 2.2 mg/dL (1.6-2.6); Potassium 4.1 mmol/L (3.5-5.1); Protein, Total 7.1 g/dL (6.4-8.2); Sodium Level 140 mmol/L (136-145); Troponin-I HS 4 pg/mL (3.0-54.0)
--- NOTE | 2023-07-16 03:19 | CT_ITS ---
EXAM: CT Abdomen And Pelvis W/ Contrast Injection HISTORY: abd pain with elevated lipase TECHNIQUE: Routine protocol CT abdomen pelvis. IV Contrast: IV 100mL Isovue-370 . Oral Contrast: without. Sagittal and coronal images were reconstructed. RADIATION DOSAGE (If Supplied By Facility): CTDIvol = ( 9.41 ) mGy, DLP = ( 764.55 ) mGycm Individualized dose optimization techniques were used for this CT. COMPARISON: None. LIMITATIONS: None. FINDINGS: LOWER CHEST: Calcified granuloma left lower lobe. Coronary artery calcifications. Small hiatal hernia. LIVER: Unremarkable. GALLBLADDER/BILE DUCTS: Gallbladder surgically absent. PANCREAS: Unremarkable. SPLEEN: Small calcifications previous granulomatous disease. ADRENAL GLANDS: Unremarkable. KIDNEYS / URETERS: Unremarkable. Right kidney duplex. BOWEL / MESENTERY: Diverticula throughout the colon. No bowel obstruction. APPENDIX: Identified and normal. No evidence of acute appendicitis. PERITONEUM: No free air. No free fluid. VESSELS: Abdominal aorta is normal caliber. RETROPERITONEUM: Unremarkable. REPRODUCTIVE ORGANS: Unremarkable. BLADDER: Unremarkable. ABDOMINAL WALL: Unremarkable. BONES: No acute abnormality. Degenerative changes lumbar spine with minimal anterolisthesis at L5-S1 OTHER: None. CT/Abdomen/Pelvis W IV Cont ONLY IMPRESSION: No acute findings. Colonic diverticulosis without evidence of acute diverticulitis. Electronically Signed: Pao Farmer MD at 4:52 EDT ,
[2023-07-16 04:49] LABS: Troponin-I HS 5 pg/mL (3.0-54.0)
--- NOTE | 2023-07-16 05:06 | EDS_ITS ---
HPI History of Present Illness Chief Complaint: Chest Pain Informant: patient Narrative Narrative: Patient is a 67-year-old female with past medical history of Parkinson's disease. Reportedly she went to bed normally and was sleeping when she awoke with upper abdominal/lower chest discomfort and had bouts of vomiting. She states symptoms lasted for approximately 5 minutes and then slowly resolved. She states she feels normal at this time. However because of the sudden onset of symptoms there was concern this could be cardiac in nature and she was brought in for evaluation [facility] Medical History (Updated 07/24/23 @ 01:[address] Osvaldo Joseph, DO) Hyperlipidemia FHx: cholecystectomy Parkinsons disease Home Medications ?Medication ?Instructions ?Recorded ?Last Taken ?Type Lactobacillus acidophilus 2 1 ea PO DAILY 06/18/17 Unknown History billion cell tablet calcium carbonate 250 mg-vitamin 1 ea PO BID 06/18/17 Unknown History D3 3.125 mcg (125 unit) tablet cinnamon bark 500 mg capsule 500 mg PO DAILY 06/18/17 Unknown History krill 1,000 mg-omega-3 170 mg-dha 1 ea PO BID 06/18/17 Unknown History 50 mg-epa 80 [id number] capsule (krill oil) ascorbate calcium (vitamin C) 500 500 mg PO DAILY 12/21/22 Unknown History mg tablet ezetimibe 10 mg tablet 10 mg PO DAILY 12/21/22 Unknown History glutamine 500 mg capsule 500 mg PO DAILY 12/21/22 Unknown History (L-Glutamine) magnesium citrate 100 mg capsule 400 mg PO DAILY 12/21/22 Unknown History psyllium husk 0.52 gram capsule 2.08 g PO TID 12/21/22 Unknown History (Fiber-Caps (psyllium husk)) turmeric root extract 500 mg 500 mg PO DAILY 12/21/22 Unknown History capsule amantadine HCl 100 mg tablet 100 mg PO BID #60 tabs 04/26/23 Unknown Rx propranolol 10 mg tablet 10 mg PO BID #60 tabs 04/26/23 Unknown Rx semaglutide 1 mg/dose (4 mg/3 mL) 1 mg subcut QWEEK 07/16/23 Unknown History subcutaneous pen injector (Ozempic) Allergy/AdvReac Type Severity Reaction Status Date / Time No Known Allergies Allergy Verified 07/16/23 01:41 Surgical History (Updated 05/10/24 @ 01:42 by Selma Hill) S/P reconstruction of ACL of right knee using combined bone-patellar tendon-bone autograft and lateral extra-articular tenodesis Social History Smoking Status: Never smoker ROS ROS ED Constitutional Constitutional ED: Denies chills or fever(s) ENT ENT ED: Denies sore throat Cardiovascular Cardiovascular: Reports chest pain; Denies palpitations or racing heartbeat Respiratory/Chest Respiratory/Chest: Denies cough or dyspnea Gastrointestinal Gastrointestinal: Reports abdominal pain, nausea and vomiting; Denies diarrhea Genitourinary Genitourinary ED: Denies dysuria Musculoskeletal Musculoskeletal: Denies back pain or myalgias Integumentary Denies rash Neurologic Neurologic: Denies headache(s) Hematologic/Lymphatic Hematologic/Lymphatic: Denies easy bleeding or easy bruising EXAM Physical Exam Const Vital Signs: 07/16/23 01:38 07/16/23 01:50 07/16/23 02:00 Temperature 97.6 F L Temperature Source Temporal Pulse Rate 19 L 70 67 Respiratory Rate 84 H 17 13 Blood Pressure 135/57 H 141/81 H Blood Pressure Mean 83 99 Pulse Ox 100 98 100 Oxygen Delivery Method Room Air 07/16/23 02:00 07/16/23 02:15 07/16/23 02:30 Temperature Temperature Source Pulse Rate 66 70 Respiratory Rate 15 17 Blood Pressure 141/81 H 127/69 H 126/63 H Blood Pressure Mean 99 85 81 Pulse Ox Oxygen Delivery Method 07/16/23 02:45 07/16/23 03:00 07/16/23 04:00 Temperature Temperature Source Pulse Rate 72 69 80 Respiratory Rate 15 15 14 Blood Pressure 129/68 H 116/72 168/83 H Blood Pressure Mean 85 86 111 Pulse Ox 98 96 Oxygen Delivery Method Room Air Room Air 07/16/23 05:00 Temperature Temperature Source Pulse Rate 74 Respiratory Rate 18 Blood Pressure 165/72 H Blood Pressure Mean 103 Pulse Ox 97 Oxygen Delivery Method Room Air Positive well nourished and well developed General Appearance ED: well developed; Negative for pallor HEENT Reports moist mucous membranes HEENT Narrative: No tongue or lip swelling no oral lesions no airway edema or compromise No secondary findings in the posterior pharynx to suggest infection Eyes PERRL and EOMs intact bilaterally General Eye ED: Negative for scleral icterus Neck supple Neck Narrative: No nuchal rigidity or meningeal signs noted Chest Wall palpation of chest normal Chest Narrative: No bony deformity or crepitance of the chest wall Resp normal respiratory effort and clear to auscultation bilaterally Cardio regular rate and regular rhythm Rate: other Other Details: Heart is regular rate and rhythm Radial and carotid pulses are equal and symmetric GI non-distended and no masses GI Narrative: Abdomen is soft and nondistended with normal active bowel sounds. Patient has pain with palpation in the midepigastric region without voluntary guarding or rigidity or pulsatile mass. No peritoneal signs or fluid wave noted Auscultation: normoactive bowel sounds Palpation: soft Back/Spine no CVA tenderness Extremity normal to inspection Extremity Narrative: No asymmetric edema no pitting edema negative Homans' sign bilaterally Neuro oriented x3 and CN's II-XII intact bilaterally Sensorium / Orientation: alert Psych mental status grossly normal Skin no rashes or lesions noted and no wounds General Skin Exam: Negative for jaundice or pallor MDM MDM MDM Narrative Medical decision making narrative: Patient arrived to the ER with spontaneous resolution of symptoms. Physical exam was nonfocal. Differential diagnosis is for acute coronary syndrome versus pancreatitis versus ileus versus obstruction. Secondary to this a basic workup was obtained. Labs revealed elevation to the lipase which could correlate with the patient's pain and vomiting and therefore a CT scan was ordered. The patient's initial troponin was 4 the delta was 5 going against acute coronary syndrome. Chest x-ray revealed no acute lung pathology. The age-adjusted D- dimer is less than 690 which is the cutoff for high in this patient going against a DVT/PE or dissection as a cause of her symptoms. Patient CT scan revealed no acute abdominal pathology. On reevaluation she is resting comfortably and remains symptom-free. Therefore at this time as workup does not reveal lung pathology signs of acute coronary syndrome or obvious intestinal infection or signs of obstruction or pancreatitis there is no need for further workup and he is otherwise safe for discharge History & Record Review Discussion w/independent historian: Patient Lab Data Attestation: I reviewed the patient's lab results. Labs: Laboratory Results - last 24 hr 07/16/23 07/16/23 01:47 04:10 WBC 7.3 RBC 4.78 Hgb 13.9 Hct 43.6 MCV 91.2 MCH 29.1 MCHC 31.9 L RDW Std Deviation 45.3 H RDW Coeff of Skui 13.4 Plt Count 255 MPV 9.9 Immature Gran % (Auto) 0.100 Neut % (Auto) 53.8 Lymph % (Auto) 36.0 Bracken % (Auto) 8.0 Eos % (Auto) 1.4 Baso % (Auto) 0.7 Absolute Neuts (auto) 3.9 Absolute Lymphs (auto) 2.62 Nucleated RBC % 0 D-Dimer Quant (PE/DVT) 0.57 H* Sodium 140 Potassium 4.1 Chloride 106 Carbon Dioxide 32.0 Anion Gap 2 L BUN 17 Creatinine 0.72 Estim Creat Clear Calc 61.42 Est GFR (MDRD) Af Amer 102 Est GFR (MDRD) Non-Af 85 BUN/Creatinine Ratio 23.4 H Glucose 115 H Calcium 8.9 Magnesium 2.2 Total Bilirubin 0.30 Direct Bilirubin 0.07 AST 30 ALT 25 Alkaline Phosphatase 65 Troponin I High Sens 4 5 Total Protein 7.1 Albumin 3.5 Globulin 3.6 Lipase 150 H Radiography Diagnostic Testing: Clinical Impression(s) from Imaging Studies Chest X-Ray 07/16/23 02:03 IMPRESSION: No evidence of active intrathoracic disease. Electronically Signed: Pao Farmer MD at 2:52 EDT , Abdomen/Pelvis CT 07/16/23 03:19 IMPRESSION: No acute findings. Colonic diverticulosis without evidence of acute diverticulitis. Electronically Signed: Pao Farmer MD at 4:52 EDT , Chest x-ray as interpreted by the emergency medicine physician reveals no acute infiltrate pneumothorax or pleural effusion Discharge Plan Triage Chief Complaint: Chest Pain ED Provider: Osvaldo Joseph Dx/Rx/DC Orders Clinical Impression: Nonspecific abdominal pain, Nonspecific chest pain, Parkinson's disease Instructions: Abdominal Pain, ED Chest Pain, Uncertain Cause Prescriptions: No Action ezetimibe 10 mg tablet 10 mg PO DAILY turmeric root extract 500 mg capsule 500 mg PO DAILY L-Glutamine 500 mg capsule 500 mg PO DAILY ascorbate calcium (vitamin C) 500 mg tablet 500 mg PO DAILY magnesium citrate 100 mg capsule 400 mg PO DAILY psyllium husk [Fiber-Caps (psyllium husk)] 0.52 gram capsule 2.08 g PO TID amantadine HCl 100 mg tablet 100 mg PO BID Qty: 60 6RF propranolol 10 mg tablet 10 mg PO BID Qty: 60 5RF cinnamon bark 500 MG capsule 500 mg PO DAILY calcium carbonate-vitamin D3 1 EACH tablet 1 ea PO BID krill oil 1 EACH capsule 1 ea PO BID Lactobacillus acidophilus 1 EACH tablet 1 ea PO DAILY Ozempic 1 mg/dose (4 mg/3 mL) pen injector 1 mg subcut QWEEK Primary Care Provider: Pooja Gamez Referrals: Pooja Gamez MD [Primary Care Provider] - Print Language: Greenlandic Disposition Disposition: Home, Self Care Discharge Date/Time: 07/16/23 05:20
== END 2023-07-16 05:20 | disposition home or self-care (01) ==
PROVIDERS: Emergency Provider Emergency Medicine; PCP Internal Medicine; Visit Provider Emergency Medicine
DX: R07.9 Chest pain, unspecified (principal); R10.9 Unspecified abdominal pain; Z90.49 Acquired absence of other specified parts of digestive tract; E78.5 Hyperlipidemia, unspecified
CPT/HCPCS: 71046; 74177; 80048; 80076; 83690; 83735; 84484; 85025; 85379; 93005; 99283; Q9967; A4216

== ENCOUNTER → 2023-07-20 | Outpatient (CLI) | payer MEDICARE, OTHER, SELFPAY ==
--- NOTE | 2023-07-20 09:48 | BI_ITS ---
MAMMOGRAPHY - BILATERAL SCREENING REASON FOR EXAM: Female, 67 years old. Routine annual screening examination. PERTINENT HISTORY: Sister with breast cancer. Mother with breast cancer. TECHNIQUE: Digital bilateral breast evette (3D mammographic acquisition) in the CC and MLO projections. 2-D mediolateral oblique (MLO) and craniocaudad (CC) views of both breasts were obtained. CAD: Full Field Digital Mammography with Computer Added Detection was performed. COMPARISON: Comparison is made with prior study July 17, 2022 and July 14, 2021. FINDINGS: Breast Composition: There are scattered areas of fibroglandular density. There are no dominant masses or suspicious calcifications. No other significant abnormalities are identified. There has been no significant change since the prior study. BI/SCRN MAMM (CAD)W/EVETTE BILAT IMPRESSION: Stable bilateral screening mammogram. Yearly follow-up mammogram recommended. (A) ASSESSMENT CATEGORY: BIRADS Category 1: Negative. A letter regarding these results will be sent to the patient by the facility within 30 days. Approximately 10% of breast cancers are not detected by mammography. A normal mammogram should not delay biopsy of a clinically suspicious abnormality. [id number] Electronically Signed: Ayaan Posdaas MD at 12:30 EDT ,
--- NOTE | 2023-07-20 09:53 | BD_ITS ---
STUDY: DUAL ENERGY X-RAY ABSORPTIOMETRY / DXA REASON FOR EXAM: Female, 67 years old. [id number] TECHNIQUE: Bone Mineral Density (BMD) measurements of lumbar spine and bilateral hips were obtained. COMPARISON: Comparison is made with prior study July 10, 2020. FINDINGS: Lumbar Spine (L1-L4): g/cm2 (0.949) / T-score (-0.9) / Z-score (1.2) Findings are suggestive of normal bone density with a low fracture risk. Left Femur Total: g/cm2 (1.018) / T-score (0.6) / Z-score (2.1) Left Femoral Neck: g/cm2 (0.832) / T-score (-0.1) / Z-score (1.6) Right Femur Total: g/cm2 (1.023) / T-score (0.7) / Z-score (2.1) Right Femoral Neck: g/cm2 (0.882) / T-score (0.3) / Z-score (2.1) The T-Scores on the most recent prior examination were: Lumbar Spine (L1-L4): There has been worsening of bone density since the previous examination. Left Femur Total: which represents a worsening of 0.9%. Right Femur Total: which represents a worsening of 8.9%. BD/Dexa Bone Density Study IMPRESSION: The patient is considered normal as outlined below according to World Maciel Organization (WHO) criteria with a low fracture risk. There has been worsening of bone density since the previous examination. Reference Information: The T-score is the number of standard deviations above or below the standard which is normal for young adults at their peak bone mineral density. The World Health Organization (WHO) interprets the T-scores as follows: Above -1 Normal bone density Between -1 and -2.5 Osteopenia Equal to / or below -2.5 Osteoporosis As a practical clinical guideline, osteopenia may be graded as follows: Mild -1 through -1.5 Moderate -1.6 through -2.0 Severe -2.1 through -2.4 The Z-score is the number of standard deviations above or below age-matched controls. A Z-score of less than -1.5 would be considered abnormal. References: 1. NIH Osteoporosis and Related Bone Diseases www osteo.org 2. International Society for Clinical Densitometry www iscd.org 3. National Osteoporosis Foundation www nof.org Electronically Signed: Ayaan Posadas MD at 15:35 EDT ,
== END | disposition home or self-care (01) ==
LOC: OPBD 09:46
PROVIDERS: PCP Internal Medicine; Referring Provider Internal Medicine; Visit Provider Internal Medicine
DX: Z12.31 Encounter for screening mammogram for malignant neoplasm of breast (principal); Z80.3 Family history of malignant neoplasm of breast; Z78.0 Asymptomatic menopausal state
CPT/HCPCS: 77063; 77067; 77080

== ENCOUNTER → 2023-07-28 | Outpatient (CLI) | payer MEDICARE, OTHER, SELFPAY ==
--- NOTE | 2023-08-02 11:31 | STRESSREP_ITS ---
Stress Test Report Date: 07/28/2023 Procedure: Exercise tolerance test/imaging study Indications: Chest pain Consent: Per the patient Procedure: The patient exercised on a Gregorio protocol for 5 minutes and 7 seconds achieving a peak heart rate of 136 bpm (90% predicted maximal heart rate) with a peak blood pressure 184/90 mmHg and a peak MET capacity of 7 METs. The baseline ECG demonstrated normal sinus rhythm. The peak exercise ECG demonstrated no significant ischemic changes. EKG during recovery revealed no significant ischemic changes [There were no cardiac dysrhythmias pretest, during exercise, or recovery]. The functional capacity was considered normal for age. There was [no complaint of chest discomfort during exercise or recovery]. The examination was discontinued secondary to dyspnea, inability to keep up with the treadmill. Impression: 1. Technically adequate (percent predicted maximal heart rate greater than 85%) exercise tolerance test 2. Stress test is negative for exercise-induced EKG changes of ischemia 3. The test test is negative for exercise-induced chest pain 4. Functional capacity is normal for age 5. Nuclear images pending Myocardial perfusion imaging study: Technique: The patient was injected with 11.9 mCi of technetium 99m Cardiolite and subsequently rest SPECT Cardiolite nuclear imaging was obtained in the horizontal long, vertical long, and short axis views. The patient exercised on a Gregorio protocol. Please see above for details. The patient was injected with 34 mCi of technetium 99m Cardiolite and subsequently stress SPECT Cardiolite nuclear imaging was obtained in the horizontal long, vertical long, and short axis views. A gated Cardiolite study at peak stress was obtained. Interpretation: Rest and stress SPECT Cardiolite nuclear imaging status post realignment, normalization, and attenuation correction, demonstrates no evidence of significant ischemia or infarction. The gated Cardiolite study demonstrates no significant regional wall motion abnormalities. The reported LVEF is greater than 70%. Impression: 1. There is no evidence of significant ischemia or infarction. 2. The gated Cardiolite study reports an LVEF of greater than 70%. This note was generated with [employer]iment[employer] software. It may contain incorrect words, spelling, and punctuation that were not noted in checking the note before signing.
== END | disposition home or self-care (01) ==
LOC: CVS 06:14
PROVIDERS: PCP Internal Medicine; Referring Provider Internal Medicine; Visit Provider Internal Medicine
DX: R07.9 Chest pain, unspecified (principal)
CPT/HCPCS: 78452; 93017; A9500; A4216

== ENCOUNTER → 2023-09-08 | Outpatient (CLI) | payer MEDICARE, OTHER, SELFPAY ==
[2023-09-08 12:20] LABS: Hematocrit 45.1 % (37-47); Hemoglobin 14.2 g/dL (12.0-15.0); Mean Corp Hgb Conc 31.5 g/dL (32-36); Mean Corpuscular Hgb 28.8 pg (27.0-32.0); Mean Corpuscular Volume 91.5 fL (81-99); Mean Platelet Vol. 10.3 fl (6.2-12.0); Platelet Count 246 K/mm3 (150-450); RBC Distribution Width CV 13.2 % (11.6-14.6); Red Blood Count 4.93 M/mm3 (4.2-5.4)
[2023-09-08 12:57] LABS: AST(SGOT) 16 U/L (15-37); Alanine Aminotransfer ALT/SGPT 23 U/L (13-56); Albumin, Serum 3.7 g/dL (3.2-5.0); Alkaline Phosphatase 72 U/L (45-117); Anion Gap 7 (5-15); BUN 18 mg/dL (7-18); BUN/Creat Ratio 26.9 RATIO (10-20); Bilirubin, Direct 0.17 mg/dL (0.00-0.30); Calcium,Total 9.4 mg/dL (8.5-10.1); Chloride 103 mmol/L (98-107); Cholesterol 204 mg/dL (200); Creatinine, Serum 0.67 mg/dL (0.55-1.02); EST Glomerular Filtration Rate 93 mL/min (>60); Est Glom Filt Rate - Afr Amer 112 mL/min (>60); Globulin 3.6 g/dL (2.2-4.2); Glucose 91 mg/dL (74-106); High Density Lipoprotein 65 mg/dL; Potassium 4.1 mmol/L (3.5-5.1); Protein, Total 7.3 g/dL (6.4-8.2); Sodium Level 139 mmol/L (136-145); Triglycerides 105 mg/dL; Very Low Density Lipoprotein 21 mg/dL (5-40)
[2023-09-09 15:13] LABS: Vitamin B12 488 pg/mL (211-911)
[2023-09-13 14:08] LABS: Vitamin B1, Thiamine 150.1 nmol/L (66.5-200.0)
== END | disposition home or self-care (01) ==
PROVIDERS: PCP Internal Medicine; Referring Provider Psychiatry & Neurology Neurology; Visit Provider Psychiatry & Neurology Neurology
DX: E78.00 Pure hypercholesterolemia, unspecified (principal)
CPT/HCPCS: 36415; 80053; 80061; 82248; 82607; 82746; 84425; 84443; 85027

== ENCOUNTER → 2023-09-17 | Outpatient (CLI) | payer MEDICARE, OTHER, SELFPAY ==
--- NOTE | 2023-09-17 12:29 | MRI_ITS ---
STUDY: MRI BRAIN WITH AND WITHOUT CONTRAST REASON FOR EXAM: Female, 67 years old. mild cognitive impairment TECHNIQUE: Standardized multiplanar fat and water weighted pulse sequences were obtained. IV 15cc clariscan was administered for the contrast portion of the examination. COMPARISON: 06/22/2022 FINDINGS: There is mild cerebral atrophy with widening of the extra-axial spaces and ventricular dilatation. There are a limited number of small white matter hyperintensities, distributed throughout the deep white matter tracts of the cerebral hemispheres, consistent with mild chronic white matter ischemic changes. There is no evidence for recent intracranial ischemia or other cause of cytotoxic edema on diffusion weighted imaging (DWI). Normal T2* images of the brain without demonstrated susceptibility artifact. There is no demonstrated hemosiderin stain. Thin section coronal T2-weighted images of the temporal lobes do not demonstrate perihippocampal atrophy seen with cognitive decline from Alzheimer''s disease. Normal bilateral basal ganglia. Normal thalami. There is no extra-axial fluid accumulation. Normal flow voids within the major intracranial circulation suggesting patency by spin echo criteria. Normal venous enhancement. There is no enhancing intra-axial or extra-axial abnormality. Normal sella turcica, pituitary gland, infundibular stalk, optic chiasm and hypothalamus. Normal tectal plate and pineal gland. Normal midbrain, kailyn and medulla. Normal cerebellum. Normal basal cisterns. Normal bilateral temporal bones. Normal bilateral internal auditory canals. No demonstrated orbital abnormality, within the constraints of a routine brain study. Normal visualized paranasal sinuses. Normal calvarium and skull base. Normal visualized soft tissue structures. Normal visualized upper cervical spine. MRI/Brain W/WO Contrast IMPRESSION: Involutional changes of the brain, as described above. No acute infarct. Electronically Signed: Ayaz Norton MD at 14:49 EDT ,
== END | disposition home or self-care (01) ==
LOC: MRI 12:27
PROVIDERS: PCP Internal Medicine; Referring Provider Psychiatry & Neurology Neurology; Visit Provider Psychiatry & Neurology Neurology
DX: G31.84 Mild cognitive impairment of uncertain or unknown etiology (principal); G20.A1 Parkinson's disease without dyskinesia, without mention of fluctuations
CPT/HCPCS: 70553; A9575

== ENCOUNTER 2024-08-01 13:00 | Outpatient (RCR) | payer MEDICARE, OTHER, SELFPAY ==
--- NOTE | 2024-07-03 14:55 | HP.PTEVAL_ITS ---
Patient's Visit Information Visit Information Visit Information: NIXON FORBES is a 68 year old F referred to Physical Therapy by Dr. Marcelino Israel MD with a diagnosis of PD. Date of Evaluation: 07/03/24 Physical Therapist: KARMA Taylor Visit Plan Frequency: 2x /Week Duration: 6 Weeks Plan: Pt wants a 15 min home exercise program. (upright posture, calf strengthening, BW walking, Turning 180 degrees, core stability) 2X/ week for 3-6 weeks for controlling propulsion FW with gait, BW walking, turning 180-360 degrees, gait training with HEP. May give some core stability for posture for back pain. Pt plans on joining PD class at [place] Subjective Subjective: Pt was dx with PD Dec 2022 and probably had it 2-3 years before then. Pt asked the Dr about PT and then work her way into the class. She is struggling with her knees (has had previous surgeries) and has had a lot of back issues also. She has to sit down and relax for a little bit. Her feet and fingers are getting a little slower than used to be. She has stairs: leads with R leg first due to knee pain and uses a railing. She is slow getting in and out of a car. Rolling over in bed she has a sidebar to help her roll over otherwise it is difficult. Sit to stand: she is able to get up without the use of her arms. She is usually ok wit dual tasking. She gets back pain if she is standing a lot. She does not have AM stiffness in her back. She tries to walk 5 days a week and has worked up to a mile now. Her legs get more tense and tremor is on the R side. Pain L knee pain: Pain Intensity (Out of 10): 2 back pain: Pain Intensity (Out of 10): 0 Objective Objective: Tremor in R hand Gait: walks with shorter stride and decreased heel to toe gait pattern. 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 LE MMT: R hip flex 13.1 and L 12.5 R knee ext 22.4 and L 20.6 R knee flex 12.9 and L 11.3 Heel and toe raises: Pt is able to heel and toe raise X 5 each direction Standing opp arm and leg X 10 each direction. Balance/Special Test Scores Functional Gait Assessment Score: 14 % Disability: 53.3400 Lower Extremity Functional Score: 41 Goals Goal 1:: I HEP (15 min of exercises for HEP) Goal Time Frame: 4-6 Weeks Goal 2:: Be able to turn 180 degrees without taking many small steps and picking up feet Goal Time Frame: 4-6 Weeks Goal 3:: Be able to complete one lap around dept being able to correct the feeling of wanted to propel FW Goal Time Frame: 4-6 Weeks Goal 4:: Increase balance (FGA was 14 at [facility]) Rehabilitation Potential Rehabilitation Potential: Good Anticipated Interventions Patient/Client Instruction: Educate patient on: Condition and Plan of Care For the Purpose of:: To decrease pain, To increase ROM, To improve nutrient delivery to tissue, To improve muscle performance and motor function, To improve ability to perform ADL's, To increase tolerance to activity/condition/position, To improve performance and independence with ADL's, To decrease level of supervision to perform tasks, To improve ability of physical actions for home/community/work/leisure, To improve gait and locomotor functions, To improve health of tissue, To increase flexibility/ROM, To improve endurance, To improve balance and To improve safety with gait Therapeutic Exercise to Include: Strength training, Endurance training, Balance training, Coordination, Body mechanics, Postural training, Flexibilty training, Gait and locomotor training, Neuromotor development and Dynamic Lumbar Stabilization For the Purpose of:: To decrease pain, To increase ROM, To improve nutrient delivery to tissue, To improve muscle performance and motor function, To improve ability to perform ADL's, To improve performance and independence with ADL's, To decrease level of supervision to perform tasks, To improve ability of physical actions for home/community/work/leisure, To improve gait and locomotor functions, To improve health of tissue, To increase flexibility/ROM, To improve endurance, To improve balance and To improve safety with gait Functional Training to Include: Gait training For the Purpose of:: To improve ability of physical actions for home/community/work/leisure, To improve gait and locomotor functions and To improve safety with gait Text: Thank you for the opportunity to evaluate your patient. For Medicare and Medicare HMO plans, please review the plan of care and approve it. It will need to be FAXED BACK to us at [phone] for Medicare purposes. For Medicare only, by signing this I certify the plan of care. Please let me know if there are questions or concerns regarding this plan of care. Physician Signature: Date:
--- NOTE | 2024-08-01 13:28 | HP.PTDCSUM ---
Discharge Summary D/C summary: It has been my pleasure to treat NIXON FORBES referred by Dr. Marcelino Israel MD, with the diagnosis of PD for a total of 7 visit(s). Discharge Date: 08/01/24 Please see the following information for a summary of their discharge status. Subjective Subjective: Pt knee is feeling much better. She feels that if she gets all the exercises down together and then she can do her own exercises at home and then maybe try the PD class. Pain L knee pain: Pain Intensity (Out of 10): Unrated back pain: Pain Intensity (Out of 10): 0 Objective Objective/Function: FGA 19 Turning 180 degrees: able to do this picking up her feet and not as many steps. Pt still struggles with walking BW and getting a bigger step but will practice this along a hallway rail. Gait: she walks with more upright posture but does revert back to FW trunk but does slow and correct. She also needs some verbal cues at times to go heel to toe. Goals Goal 1:: I HEP (15 min of exercises for HEP) Goal Progress: Goal Met Goal 2:: Be able to turn 180 degrees without taking many small steps and picking up feet Goal Progress: Goal Met Goal 3:: Be able to complete one lap around dept being able to correct the feeling of wanted to propel FW Goal Progress: Progressing Goal 4:: Increase balance (FGA was 14 at eval) Goal Progress: Goal Met Plan Plan: DC PT to HEP D/C Information Discharge Comments: DC PT to [facility] HEP and PD class d/c sentence: If there are questions or concerns regarding this patient's physical therapy, please feel free to call me at [phone]. Thank you for the referral of this patient. Sincerely, Sandhya Cruz, MPT Balance/Gait/Functional tests Balance/Special Test Scores Functional Gait Assessment Score: 19 % Disability: 36.6700 Lower Extremity Functional Score: 51
== END 2024-08-01 15:30 | disposition home or self-care (01) ==
LOC: PT 13:00
PROVIDERS: PCP Internal Medicine; Referring Provider Psychiatry & Neurology Neurology; Visit Provider Psychiatry & Neurology Neurology
DX: G20.A1 Parkinson's disease without dyskinesia, without mention of fluctuations (principal)
CPT/HCPCS: 97110; 97116; 97161; 97530

== ENCOUNTER → 2024-09-01 | Outpatient (CLI) | payer MEDICARE, OTHER, SELFPAY ==
--- NOTE | 2024-09-01 10:45 | BI_ITS ---
EXAM: SCRN MAMM (CAD)W/EVETTE BILAT DATE: 09/01/2024 CLINICAL HISTORY: F, Age 68 y/o , SCRN MAMM (CAD)W/EVETTE BILAT TECHNIQUE: SCRN MAMM (CAD)W/EVETTE BILAT COMPARISON: Prior exam(s) dated 07/20/2023, 07/17/2022, 07/14/2021. FINDINGS: TISSUE DENSITY: There are scattered areas of fibroglandular density. Bilateral Breast Mammographic Findings: No significant masses, calcifications or other abnormalities are identified. BI/SCRN MAMM (CAD)W/EVETTE BILAT IMPRESSION: There is no mammographic evidence of malignancy. OVERALL FINAL ASSESSMENT BI-RADS 1: NEGATIVE. RECOMMEND ANNUAL MAMMOGRAPHIC SCREENING. RECOMMENDATION: Routine annual follow-up in 1 Year A letter with findings and recommendations will be mailed to the patient. Reading Location: [id number]
== END | disposition home or self-care (01) ==
LOC: OPBI 10:37
PROVIDERS: PCP Internal Medicine; Referring Provider Internal Medicine; Visit Provider Internal Medicine
DX: Z12.31 Encounter for screening mammogram for malignant neoplasm of breast (principal)
CPT/HCPCS: 77063; 77067

== ENCOUNTER → 2024-11-20 | Outpatient (CLI) | payer MEDICARE, OTHER, SELFPAY ==
[2024-11-20 10:21] LABS: Hematocrit 42.3 % (37-47); Hemoglobin 13.6 g/dL (12.0-15.0); Immature Granulocytes Count 0.010 X10^3/uL (0.0-0.0); Mean Corp Hgb Conc 32.2 g/dL (32-36); Mean Corpuscular Volume 91.2 fL (81-99); Mean Platelet Vol. 9.5 fl (6.2-12.0); NRBC Flagged by Analyzer 0 % (0-5); Platelet Count 256 K/mm3 (150-450); RBC Distribution Width CV 12.9 % (11.6-14.6); RBC Distribution Width SD 43.2 fl (35.1-43.9); Red Blood Count 4.64 M/mm3 (4.2-5.4); White Blood Count 5.9 K/mm3 (4.4-11.0)
[2024-11-20 15:09] LABS: AST(SGOT) 22 U/L (<=31); Alanine Aminotransfer ALT/SGPT 14 U/L (<=34); Albumin, Serum 4.1 g/dL (3.4-4.8); Alkaline Phosphatase 57 U/L (35-104); Anion Gap 10 (5-15); BUN 15 mg/dL (4-19); BUN/Creat Ratio 26.4 RATIO (10-20); Calcium,Total 9.7 mg/dL (7.6-11.0); Carbon Dioxide 26.8 mmol/L (21.0-32.0); Chloride 105 mmol/L (98-108); Cholesterol 204 mg/dL (<=200); Globulin 3.1 g/dL (2.2-4.2); Glucose 94 mg/dL (70-99); Low Density Lipoprotein Calc. 120 mg/dL; Potassium 4.6 mmol/L (3.3-5.1); Triglycerides 96 mg/dL; Very Low Density Lipoprotein 19 mg/dL (5-40); cholesterol:hdl ratio screen 3.13
== END | disposition home or self-care (01) ==
LOC: MTLAB 09:10
PROVIDERS: PCP Internal Medicine; Referring Provider Internal Medicine; Visit Provider Internal Medicine
DX: E11.9 Type 2 diabetes mellitus without complications (principal)
CPT/HCPCS: 36415; 80053; 80061; 85025

== ENCOUNTER 2024-11-29 13:21 | Outpatient (RCR) | payer MEDICARE, OTHER, SELFPAY ==
--- NOTE | 2024-12-13 11:22 | HP.SP.EVAL ---
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 She has a history of mild Parkinson's disease, which currently presents as a tremor in her right hand as well as intermittent tremor in her left hand and an intermittent bilateral lower extremity tremor. Medications related to this diagnosis: ascorbate calcium (vitamin C) 500 mg tablet; aspirin 81 mg tablet,chewable; calcium carbonate-vitamin D3 1 EACH tablet; cinnamon bark 500 MG capsule; ezetimibe 10 mg tablet; glutamine [L-Glutamine] 500 mg capsule; Lactobacillus acidophilus 1 EACH tablet; magnesium citrate 100 mg capsule; polyethylene glycol 3350 [Miralax] 17 gram/dose powder; potassium chloride 10 mEq tablet extended release; propranolol 10 mg tablet; psyllium husk [Fiber-Caps (psyllium husk)] 0.52 gram capsule; ropinirole 0.5 mg tablet; semaglutide [semaglutide 1 mg/dose (4 mg/3 mL) subcutaneous pen injector] 1 mg/dose (4 mg/3 mL) pen injector; turmeric root extract 500 mg capsule Smoking Status: Never smoker Diagnosis Diagnosis: Mild pharyngeal dysphagia Pain Is pain an issue with your current prescribed condition?: No Personal Preferred language: Belgian Patient Allergies Allergies Allergies: Allergies No Known Allergies Allergy (Verified 11/22/24 09:56) Subjective Dysphagia Symptoms Reported Symptoms/Problems with: Difficulty Swallowing Pills Current Diet Solids Current Diet: Regular Current Diet Liquids Current Liquids: Thin Objective Dysphagia 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 Pureed Administered via: Spoon Oral Preparation: WNL Oral Transit: WNL Bolus clearance: fully cleared Gagging: No Cough: none observed/unable to assess Pharyngeal phase: immediate laryngeal elevation Patient Report: Pt reported no difficulty with applesauce via spoon. Comments: No overt s/s of aspiration with this consistency. Soft & Bite sized (Mechanical) Oral Preparation: WNL Oral Transit: WNL Bolus clearance: fully cleared Cough: none observed/unable to assess Pharyngeal phase: immediate laryngeal elevation Patient Report: Pt reported no difficulty with mastication or swallowing soft granola fruit bar. Comments: No overt s/s of aspiration with this consistency. Regular Oral Preparation: WNL Oral Transit: WNL Bolus clearance: fully cleared Gagging: No Cough: none observed/unable to assess Pharyngeal phase: immediate laryngeal elevation Patient Report: Pt reported no difficulty with mastication or swallowing of mixed nuts, beef stick, or cristo cracker. Comments: No overt s/s of aspiration with this consistency. Impact Impact on Safety & Functioning: No Limitations Recommendations Modified Barium Swallow/Cookie Swallow Recommended: No Swallowing Treatment: No Diet Texture Recommendations Solids: Regular (Level 7) Liquids: Thin (Level 0) Safety Saftey Precautions/Swallowing Recommendations (Check all that Apply): Upright Position at Least 30 Minutes After Meals and Small Sips & Bites when Eating Other: Pt was given a list of general safety precautions that she can follow when she eats and takes her pills as well as compensatory strategies incase she experiences intermittent difficulty with her pills. Results Swallowing Within Normal Limits: Yes Reference: Neuro-QoL instrument Radiation Oncology Patient Plan Plan Plan: At this time, skilled outpatient speech therapy is not recommended for Lien. ST provided list of compensatory strategies and safe swallow precautions. Lien in agreement with ST recommendation. Recommendations Treatment Warranted: No Education Patient has Indicated that the Following Identified Educational Needs: None The Patient has indicated that they have no educational or learning abilities that may effect their care.: Yes Patient Instruction Patient Education: Safety Precautions and Diet Level Person Taught: Patient Teaching Method: Discussion Response to teaching: Verbalize Understanding
== END 2024-11-29 19:00 | disposition home or self-care (01) ==
LOC: SP 13:21
PROVIDERS: PCP Internal Medicine; Referring Provider Psychiatry & Neurology Neurology; Visit Provider Psychiatry & Neurology Neurology
DX: G20.A1 Parkinson's disease without dyskinesia, without mention of fluctuations (principal); R13.10 Dysphagia, unspecified
CPT/HCPCS: 92610

== ENCOUNTER → 2024-12-08 | Outpatient (CLI) | payer MEDICARE, OTHER, SELFPAY ==
--- NOTE | 2024-12-08 12:30 | US_ITS ---
PROCEDURE: BREAST LIMITED UNILATERAL 12/08/2024 REASON FOR EXAM: F, Age 68 y/o , PAIN LEFT BREAST COMPARISON: Mammogram 09/01/2024, 07/20/2023, 07/17/2022. TECHNIQUE: Procedure Code: USBRSTLIMIT Modality: US Procedure: BREAST LIMITED UNILATERAL FINDINGS: Ultrasound performed of the area of patient's reported pain in the lower inner quadrant of the left breast and the left axillary region demonstrates no suspicious sonographic findings to account for the patient's reported pain. There is an incidental normal-appearing left axillary lymph node. US/Breast Limited Unilateral IMPRESSION: There are no suspicious sonographic findings in the areas of patient's reported pain in the left breast and left axilla. Clinical management is recommended for the pain. BI-RADS 2: BENIGN RECOMMENDATION: OTHER RETURN TO ANNUAL SCREENING MAMMOGRAM NEXT DUE IN 8 MONTHS . Reading Location: [id number]
== END | disposition home or self-care (01) ==
LOC: OPUS 12:25
PROVIDERS: PCP Internal Medicine; Referring Provider Internal Medicine; Visit Provider Internal Medicine
DX: N64.4 Mastodynia (principal)
CPT/HCPCS: 76642